=== PATIENT | male | born 1975 | race Caucasian/White ===

== ENCOUNTER 2024-01-05 15:15 | Inpatient (IN) | payer MEDICARE, OTHER ==
--- NOTE | 2024-01-05 15:59 | ED ---
General Adult HPI - General Chief complaint: Abdominal Pain Stated complaint: ABD Pain Time Seen by Provider: 01/05/24 15:17 Source: patient, EMS, RN notes reviewed, old records reviewed Mode of arrival: EMS Limitations: no limitations - History of Present Illness Initial comments: Is a 48-year-old male presents emergency department complaining of acute on chronic abdominal pain. Has a history of alcoholic liver disease, cirrhosis, esophageal varices, end-stage liver failure. States he has had increased abdominal pain and some mild jaundiced. Was sent from rehab. Last alcoholic drink was 1 week ago. States he is having a bout of his acute on chronic abdominal pain. States it is in the lower abdomen. Denies any diarrhea, constipation. Denies any nausea or vomiting. Denies any blood in the stool or any bloody emesis. Denies any chest pain or shortness of breath. Has no other acute complaints at this time. Presents for further evaluation at this time. Does have a history of banding in his esophagus and typically follows up with h is GI specialist at [facility], Dr. Garcia - Related Data Home Medications Medication Instructions Recorded Confirmed Calcium Phos/D3/Magnesium/Zinc 1 tab PO TID PRN 01/05/24 01/05/24 [Fjtqrmf-Het-Mucr-Vitamin D3] Chlorpheniramine Maleate 4 mg PO Q4H PRN 01/05/24 01/05/24 [Chlor-Trimeton] Folic Acid 1 mg PO DAILY 01/05/24 01/05/24 Furosemide [Lasix] 20 mg PO DAILY 01/05/24 01/05/24 Hyoscyamine Sulfate [Levsin] 0.125 mg PO QID PRN 01/05/24 01/05/24 INSULIN ASPART (NovoLOG) [NovoLOG See Protocol SQ TID-W/MEALS 01/05/24 01/05/24 (formulary)] Ibuprofen [Motrin Ib] 600 mg PO Q6H PRN 01/05/24 01/05/24 Insulin Glargine,Hum.rec.anlog 20 units SQ HS 01/05/24 01/05/24 [Lantus Solostar Pen] Lactulose 20 gm PO TID 01/05/24 01/05/24 Mag Hydrox/Aluminum Hyd/Simeth 30 ml PO Q4H PRN 01/05/24 01/05/24 [Mylanta Maximum Strength Liq] Pantoprazole [Protonix] 40 mg PO BID 01/05/24 01/05/24 Potassium Chloride ER [K-Dur 20] 20 meq PO DAILY PRN 01/05/24 01/05/24 QUEtiapine [SEROquel] 100 mg PO HS 01/05/24 01/05/24 Thiamine [Vitamin B-1] 100 mg PO DAILY 01/05/24 01/05/24 ondansetron HCL [Zofran] 8 mg PO Q6H PRN 01/05/24 01/05/24 rOPINIRole HCL [Requip] 1 mg PO HS 01/05/24 01/05/24 Allergies Allergy/AdvReac Type Severity Reaction Status Date / Time Penicillins Allergy Unknown Verified 01/05/24 16:25 Childhood Review of Systems ROS Statement: Those systems with pertinent positive or pertinent negative responses have been documented in the HPI. Review of Systems: CONST: Denies fever EYES: Denies blurry vision ENT: Denies nasal congestion C/V: Denies Chest pain RESP: Denies shortness of breath GI: Endorses abdominal pain : Denies dysuria SKIN: Denies rash. MSK: Denies joint pain. NEURO: Denies headache ROS Other: All systems not noted in ROS Statement are negative. Past Medical History Past Medical History: Chest Pain / Angina Additional Past Medical History / Comment(s): cirrhosis, esophageal varices, end stage liver failure History of Any Multi-Drug Resistant Organisms: None Reported Additional Past Surgical History / Comment(s): bands in esophagus Past Psychological History: No Psychological Hx Reported, Anxiety, Depression Smoking Status: Current every day smoker Past Alcohol Use History: Daily Past Drug Use History: Marijuana General Exam - General Exam Comments Initial Comments: General: Appears in no acute distress. HEAD: Normal with no signs of head trauma. EYES: EOMI. PERRLA. Scleral icterus. ENT: Hearing grossly intact, normal oropharynx. RESPIRATORY: Clear breath sounds bilaterally. No wheezes, rales, or rhonchi. C/V: Regular rate and rhythm. S1 and S2 auscultated, no edema, peripheral pulses 2+ and intact throughout ABD: Abdomen soft, mildly distended but patient states this is baseline. Lower abdominal tenderness to palpation that is nonfocal. No guarding. No rebound tenderness. No peritoneal signs. EXT: Normal range of motion, no obvious deformity SKIN: Patient appears jaundiced. NEURO: Alert and oriented x 4. Limitations: no limitations Course Vital Signs 01/05/24 01/05/24 01/05/24 15:33 19:12 20:46 Temperature 97.8 F Pulse Rate 83 78 91 Respiratory 18 18 16 Rate Blood Pressure 111/57 116/57 119/69 O2 Sat by Pulse 100 98 98 Oximetry Medical Decision Making - Medical Decision Making Was pt. sent in by a medical professional or institution (, PA, SURVEY PARTY CHIEF, urgent care, hospital, or halfway...) When possible be specific @ -No Did you speak to anyone other than the patient for history (EMS, parent, family, police, friend...)? What history was obtained from this source @ -No Did you review nursing and triage notes (agree or disagree)? Why? @ -I reviewed and agree with nursing and triage notes Were old charts reviewed (outside hosp., previous admission, EMS record, old EKG, old radiological studies, urgent care reports/EKG's, halfway records)? Report findings @ -No old charts available for reviewing. Differential Diagnosis (chest pain, altered mental status, abdominal pain women, abdominal pain men, vaginal bleeding, weakness, fever, dyspnea, syncope, headache, dizziness, GI bleed, back pain, seizure, CVA, palpatations, mental health, musculoskeletal)? @ -Differential Abdominal Pain Men: Appendicitis, cholecystitis, diverticulosis, ischemic bowel, pancreatitis, hepatitis, UTI, gastroenteritis, AAA, incarcerated hernia, bowel obstruction, constipation, inflammatory bowel, hepatitis, peptic ulcer disease, splenic infarction, perforated viscus, testicular torsion, this is not meant to be an all-inclusive list EKG interpreted by me (3pts min.). @ -As above X-rays interpreted by me (1pt min.). @ -None done CT interpreted by me (1pt min.). @ -CT imaging reveals no obvious acute intra-abdominal process. Patient has the hepatic cirrhosis with TIPS procedure and other nonspecific findings. Patient has a large amount of stool present in the colon. U/S interpreted by me (1pt. min.). @ -None done What testing was considered but not performed or refused? (CT, X-rays, U/S, labs)? Why? @ -None What meds were considered but not given or refused? Why? @ -None Did you discuss the management of the patient with other professionals (professionals i.e. DrFab, PA, SURVEY PARTY CHIEF, lab, RT, psych nurse, social welfare administrator, crepe machine operator, teacher, neighborhood conservation officer, behavioral health case manager)? Give summary @ -Initially attempted transfer to [facility] as patient follows up with his GI specialist there at his request. They are closed to transfer. Patient then would like to stay if possible, and I spoke with city call Dr. Delcid of [facility]. She was amenable to admission however only if we obtained prior laboratory studies to show that his current laboratory studies are relatively unchanged. Particularly of the bilirubin. If patient is being admitted for hyperammonemia which is my goal as well as acute on chronic abdominal pain, then they are willing to accept. We were able to obtain laboratory studies from November 2023 for the patient from [facility]. His current hemoglobin, bilirubin's are both improved compared to that time. I spoke with the on-call [facility] physician Dr. Saini who now accepted the admission. Was smoking cessation discussed for >3mins.? @ -No Was critical care preformed (if so, how long)? @ -Yes, 36 minutes Were there social determinants of health that impacted care today? How? (Homelessness, low income, unemployed, alcoholism, drug addiction, transportatio n, low edu. Level, literacy, decrease access to med. care, correction, rehab)? @ -No Was there de-escalation of care discussed even if they declined (Discuss DNR or withdrawal of care, Hospice)? DNR status @ -No What co-morbidities impacted this encounter? (DM, HTN, Smoking, COPD, CAD, Cancer, CVA, ARF, Chemo, Hep., AIDS, mental health diagnosis, sleep apnea, morbid obesity)? @ -Alcoholic liver disease, alcoholic liver cirrhosis Was patient admitted / discharged? Hospital course, mention meds given and route, prescriptions, significant lab abnormalities, going to OR and other pertinent info. @ -Based on the patient's presentation and physical exam, presents emergency department complaining of mildly increased jaundice as well as acute on chronic lower abdominal pain. Has a significant liver history from alcohol abuse. Last drink was 1 week ago. Usually follows up with a Dr. Garcia out of [facility]. Vital signs are currently within acceptable limits. We will obtain abdominal laboratory studies, CT imaging. Patient will be given a small fluid bolus as well as IV analgesia medications and Zofran. He was in agreement this plan. Has a history of banding of his esophagus however has no evidence of acute bleeding at this time, with patient denying hematemesis as well as sofie tochezia and melena. CT imaging shows hepatic cirrhosis with TIPS procedure but no obvious acute in tra-abdominal findings to explain his current symptoms. Labs remarkable for chronic anemia with a hemoglobin of 8.6. Thrombocytopenia with platelets of 45. Patient's elevated lactic acidosis of 2.8. Bilirubin is elevated to 4.0. Ammonia is elevated to 60. Lipase mildly elevated to 391. 4+ glucose in the urine. I discussed with the patient his results. I have no prior labs for comparison. We will work on obtaining prior labs. We did reach out to [facility] for possible transfer at his request as his GI attending is at this facility, however they are close to transfers. Patient therefore would like to remain here if possible. Initially attempted transfer to [facility] as patient follows up with his GI specialist there at his request. They are closed to transfer. Patient then would like to stay if possible, and I spoke with city call Dr. Delcid of [facility]. She was amenable to admission however only if we obtained prior laboratory studies to show that his current laboratory studies are relatively unchanged. Particularly of the bilirubin. If patient is being admitted for hyperammonemia which is my goal as well as acute on chronic abdominal pain, then they are willing to accept. We were able to obtain laboratory studies from November 2023 for the patient from [facility]. His current hemoglobin, bilirubin's are both improved compared to that time. I spoke with the on-call [facility] physician Dr. Saini who now accepted the admission. Patient started on a higher dose of lactulose. Undiagnosed new problem with uncertain prognosis? @ -No Drug Therapy requiring intensive monitoring for toxicity (Heparin, Nitro, Insulin, Cardizem)? @ -No Were any procedures done? @ -No Diagnosis/symptom? @ -Acute on chronic abdominal pain, history of hepatic cirrhosis, hyperammonemia Acute, or Chronic, or Acute on Chronic? @ -Acute on chronic Uncomplicated (without systemic symptoms) or Complicated (systemic symptoms)? @ -Complicated Side effects of treatment? @ -None Exacerbation, Progression, or Severe Exacerbation] @ -No Poses a threat to life or bodily function? @ -Yes - Lab Data Result diagrams: 01/05/24 15:49 01/05/24 15:49 Lab Results 01/05/24 01/05/24 01/05/24 Range/Units 15:49 15:49 15:49 WBC 2.7 L (3.8-10.6) k/uL RBC 2.75 L (4.30-5.90) m/uL Hgb 8.6 L (13.0-17.5) gm/dL Hct 26.9 L (39.0-53.0) % MCV 97.9 (80.0-100.0) fL MCH 31.3 (25.0-35.0) pg MCHC 32.0 (31.0-37.0) g/dL RDW 16.7 H (11.5-15.5) % Plt Count 45 L (150-450) k/uL MPV 8.0 Neutrophils % 56 % Lymphocytes % 31 % Monocytes % 7 % Eosinophils % 4 % Basophils % 1 % Neutrophils # 1.5 (1.3-7.7) k/uL Lymphocytes # 0.8 L (1.0-4.8) k/uL Monocytes # 0.2 (0-1.0) k/uL Eosinophils # 0.1 (0-0.7) k/uL Basophils # 0.0 (0-0.2) k/uL Manual Slide Review Performed Hypochromasia Moderate Hypochromasia (manual) Present Anisocytosis Slight Anisocytosis (manual) Present Macrocytosis Slight PT 17.7 H (10.0-12.5) sec INR 1.7 H (<1.2) APTT 33.3 H (22.0-30.0) sec Sodium (137-145) mmol/L Potassium (3.5-5.1) mmol/L Chloride (98-107) mmol/L Carbon Dioxide (22-30) mmol/L Anion Gap mmol/L BUN (9-20) mg/dL Creatinine (0.66-1.25) mg/dL Est GFR (CKD-EPI)AfAm (>60 ml/min/1.73 sqM) Est GFR (CKD-EPI)NonAf (>60 ml/min/1.73 sqM) Glucose (74-99) mg/dL POC Glucose (mg/dL) (70-110) mg/dL POC [employer] Lead ID Lactic Ac Sepsis Rflx Plasma Lactic Acid Daniel (0.7-2.0) mmol/L Calcium (8.4-10.2) mg/dL Total Bilirubin (0.2-1.3) mg/dL Conjugated Bilirubin (0.0-0.3) mg/dL Unconjugated Bilirubin (0.0-1.1) mg/dL Delta Bilirubin (0.0-0.2) mg/dL AST (17-59) U/L ALT (4-49) U/L Alkaline Phosphatase (38-126) U/L Ammonia (<30) umol/L Total Protein (6.3-8.2) g/dL Albumin (3.5-5.0) g/dL Amylase (30-110) U/L Lipase (23-300) U/L Urine Color Dark Yellow Urine Appearance Clear (Clear) Urine pH 5.5 (5.0-8.0) Ur Specific [place] 1.029 (1.001-1.035) Urine Protein Trace H (Negative) Urine Glucose (UA) 4+ H (Negative) Urine Ketones Trace H (Negative) Urine Blood Negative (Negative) Urine Nitrite Negative (Negative) Urine Bilirubin 1+ H (Negative) Urine Urobilinogen 2.0 (<2.0) mg/dL Ur Leukocyte Esterase Negative (Negative) Serum Alcohol mg/dL 01/05/24 01/05/24 01/05/24 Range/Units 15:49 15:49 16:19 WBC (3.8-10.6) k/uL RBC (4.30-5.90) m/uL Hgb (13.0-17.5) gm/dL Hct (39.0-53.0) % MCV (80.0-100.0) fL MCH (25.0-35.0) pg MCHC (31.0-37.0) g/dL RDW (11.5-15.5) % Plt Count (150-450) k/uL MPV Neutrophils % % Lymphocytes % % Monocytes % % Eosinophils % % Basophils % % Neutrophils # (1.3-7.7) k/uL Lymphocytes # (1.0-4.8) k/uL Monocytes # (0-1.0) k/uL Eosinophils # (0-0.7) k/uL Basophils # (0-0.2) k/uL Manual Slide Review Hypochromasia Hypochromasia (manual) Anisocytosis Anisocytosis (manual) Macrocytosis PT (10.0-12.5) sec INR (<1.2) APTT (22.0-30.0) sec Sodium 136 L (137-145) mmol/L Potassium 3.5 (3.5-5.1) mmol/L Chloride 106 (98-107) mmol/L Carbon Dioxide 25 (22-30) mmol/L Anion Gap 5 mmol/L BUN 11 (9-20) mg/dL Creatinine 0.69 (0.66-1.25) mg/dL Est GFR (CKD-EPI)AfAm >90 (>60 ml/min/1.73 sqM) Est GFR (CKD-EPI)NonAf >90 (>60 ml/min/1.73 sqM) Glucose 279 H (74-99) mg/dL POC Glucose (mg/dL) 321 H (70-110) mg/dL POC [employer] Lead ID Leida Bailey Lactic Ac Sepsis Rflx Plasma Lactic Acid Daniel 2.8 H* (0.7-2.0) mmol/L Calcium 8.0 L (8.4-10.2) mg/dL Total Bilirubin 4.0 H (0.2-1.3) mg/dL Conjugated Bilirubin 0.0 (0.0-0.3) mg/dL Unconjugated Bilirubin 1.8 H (0.0-1.1) mg/dL Delta Bilirubin 2.2 H (0.0-0.2) mg/dL AST 38 (17-59) U/L ALT 21 (4-49) U/L Alkaline Phosphatase 156 H (38-126) U/L Ammonia 60 H (<30) umol/L Total Protein 6.3 (6.3-8.2) g/dL Albumin 2.4 L (3.5-5.0) g/dL Amylase 56 (30-110) U/L Lipase 391 H (23-300) U/L Urine Color Urine Appearance (Clear) Urine pH (5.0-8.0) Ur Specific [place] (1.001-1.035) Urine Protein (Negative) Urine Glucose (UA) (Negative) Urine Ketones (Negative) Urine Blood (Negative) Urine Nitrite (Negative) Urine Bilirubin (Negative) Urine Urobilinogen (<2.0) mg/dL Ur Leukocyte Esterase (Negative) Serum Alcohol <10 mg/dL 01/05/24 Range/Units 17:28 WBC (3.8-10.6) k/uL RBC (4.30-5.90) m/uL Hgb (13.0-17.5) gm/dL Hct (39.0-53.0) % MCV (80.0-100.0) fL MCH (25.0-35.0) pg MCHC (31.0-37.0) g/dL RDW (11.5-15.5) % Plt Count (150-450) k/uL MPV Neutrophils % % Lymphocytes % % Monocytes % % Eosinophils % % Basophils % % Neutrophils # (1.3-7.7) k/uL Lymphocytes # (1.0-4.8) k/uL Monocytes # (0-1.0) k/uL Eosinophils # (0-0.7) k/uL Basophils # (0-0.2) k/uL Manual Slide Review Hypochromasia Hypochromasia (manual) Anisocytosis Anisocytosis (manual) Macrocytosis PT (10.0-12.5) sec INR (<1.2) APTT (22.0-30.0) sec Sodium (137-145) mmol/L Potassium (3.5-5.1) mmol/L Chloride (98-107) mmol/L Carbon Dioxide (22-30) mmol/L Anion Gap mmol/L BUN (9-20) mg/dL Creatinine (0.66-1.25) mg/dL Est GFR (CKD-EPI)AfAm (>60 ml/min/1.73 sqM) Est GFR (CKD-EPI)NonAf (>60 ml/min/1.73 sqM) Glucose (74-99) mg/dL POC Glucose (mg/dL) (70-110) mg/dL POC [employer] Lead ID Lactic Ac Sepsis Rflx Y Plasma Lactic Acid Daniel (0.7-2.0) mmol/L Calcium (8.4-10.2) mg/dL Total Bilirubin (0.2-1.3) mg/dL Conjugated Bilirubin (0.0-0.3) mg/dL Unconjugated Bilirubin (0.0-1.1) mg/dL Delta Bilirubin (0.0-0.2) mg/dL AST (17-59) U/L ALT (4-49) U/L Alkaline Phosphatase (38-126) U/L Ammonia (<30) umol/L Total Protein (6.3-8.2) g/dL Albumin (3.5-5.0) g/dL Amylase (30-110) U/L Lipase (23-300) U/L Urine Color Urine Appearance (Clear) Urine pH (5.0-8.0) Ur Specific [place] (1.001-1.035) Urine Protein (Negative) Urine Glucose (UA) (Negative) Urine Ketones (Negative) Urine Blood (Negative) Urine Nitrite (Negative) Urine Bilirubin (Negative) Urine Urobilinogen (<2.0) mg/dL Ur Leukocyte Esterase (Negative) Serum Alcohol mg/dL - EKG Data -: EKG Interpreted by Me EKG Comments: 12-lead Electrocardiogram Interpretation Note EKG was reviewed and interpreted by myself. 12-lead ECG performed at 1629 is interpreted by me as revealing normal sinus rhythm at a rate of 78 beats per minute. Reading is normal. ND interval is 132 ms, QRS duration is 105 ms, QTc is 478 ms.. T wave inversion in lead III that is isolated. No other obvious ST segment abnormalities or T wave abnormalities.. R wave progression across the precordium was satisfactory. By my interpretation this EKG is non-diagnostic for acute ischemia. Critical Care Time Critical Care Time: Yes Total Critical Care Time: 36 Disposition Clinical Impression: Abdominal pain, Hyperammonemia, Hepatic cirrhosis Disposition: ADMITTED IP TO THIS [facility] Condition: Stable Time of Disposition: 19:40
[2024-01-05] MEDS: MORPHINE SULFATE 4 MG/ML SYRINGE IVP STA ×2 (16:20→19:10)
[2024-01-05] MEDS: ONDANSETRON 4 MG/2 ML VIAL IVP STA (16:21)
[2024-01-05] MEDS: PANTOPRAZOLE 40 MG/10 ML VIAL IVP STA (16:23)
[2024-01-05] MEDS: SODIUM CHLORIDE 0.9% 500 ML 500 ML IV STA (16:23)
[2024-01-05 16:30] LABS: Glucose,Whole Blood 321 mg/dL (70-110)
[2024-01-05 16:54] LABS: Appearance,Urine Clear (Clear); Bilirubin,Urine 1+ (Negative); Blood,Urine Negative (Negative); Color,Urine Dark Yellow; Glucose,Urine (UA) 4+ (Negative); Ketones,Urine Trace (Negative); Leukocyte Esterase,Urine Negative (Negative); Nitrite,Urine Negative (Negative); PH, Urine 5.5 (5.0-8.0); Protein,Urine Trace (Negative); Specific Gravity,Urine 1.029 (1.001-1.035)
[2024-01-05 17:04] LABS: Anisocytosis Slight; Basophils % (A) 1 %; Eosinophils # (A) 0.1 k/uL (0-0.7); Eosinophils % (A) 4 %; HCT 26.9 % (39.0-53.0); HGB 8.6 gm/dL (13.0-17.5); Hypochromasia Moderate; Lymphocytes # (A) 0.8 k/uL (1.0-4.8); Lymphocytes % (A) 31 %; MCH 31.3 pg (25.0-35.0); MCV 97.9 fL (80.0-100.0); Macrocytosis Slight; Monocytes # (A) 0.2 k/uL (0-1.0); Monocytes % (A) 7 %; Neutrophils # (A) 1.5 k/uL (1.3-7.7); Neutrophils % (A) 56 %; RBC 2.75 m/uL (4.30-5.90); RDW 16.7 % (11.5-15.5); WBC 2.7 k/uL (3.8-10.6)
[2024-01-05 17:12] LABS: INR 1.7 (<1.2); Partial Thromboplastin Time 33.3 sec (22.0-30.0); Prothrombin Time 17.7 sec (10.0-12.5)
[2024-01-05 17:15] LABS: ALT 21 U/L (4-49); AST 38 U/L (17-59); African American GFR (CKD) >90 (>60 ml/min/1.73 sqM); Albumin 2.4 g/dL (3.5-5.0); Alcohol <10 mg/dL; Alkaline Phosphatase 156 U/L (38-126); Amylase 56 U/L (30-110); Anion Gap 5 mmol/L; Bilirubin, Delta 2.2 mg/dL (0.0-0.2); Bilirubin,Unconjugated 1.8 mg/dL (0.0-1.1); Blood Urea Nitrogen 11 mg/dL (9-20); Carbon Dioxide 25 mmol/L (22-30); Chloride 106 mmol/L (98-107); Glucose 279 mg/dL (74-99); Lipase 391 U/L (23-300); Non-African American GFR(CKD) >90 (>60 ml/min/1.73 sqM); Potassium 3.5 mmol/L (3.5-5.1); Sodium 136 mmol/L (137-145); Total Protein 6.3 g/dL (6.3-8.2)
[2024-01-05 17:20] LABS: Platelet Count 45 k/uL (150-450)
[2024-01-05 17:21] LABS: Anisocytosis (M) Present; Hypochromasia (M) Present
[2024-01-05 17:28] LABS: Lactic Acid, Venous 2.8 mmol/L (0.7-2.0)
--- NOTE | 2024-01-05 18:15 | CT ---
EXAMINATION TYPE: CT abdomen pelvis w con CT DLP: 939 mGycm, Automated exposure control for dose reduction was used. DATE OF EXAM: 01/05/2024 5:52 PM COMPARISON: None. CLINICAL INDICATION:Male, 48 years old with history of abdominal pain, nonlocalized; Cirrhosis of brant er, jaundice, and abdominal pain. TECHNIQUE: Axial CT abdomen pelvis w con;Sagittal and coronal reformats were created on a separate w orkstation. Contrast used:100 ml mL of Isovue 300 with IV Contrast, (none if empty) Oral contrast used: without Oral Contrast (none if empty) FINDINGS: LOWER CHEST: Unremarkable ABDOMEN LIVER: Nodular contour to liver. There is a transjugular intrahepatic portosystemic shunt stent graft s present with one end terminating appropriately in the portal vein and the other near the IVC. GALLB LADDER AND BILE DUCTS: Gallbladder wall thickening nondistention likely secondary to cirrhosis. PANCREAS: Unremarkable. SPLEEN: Spleen is enlarged measuring up to 16.6 cm. ADRENAL GLANDS: Unremarkable. KIDNEYS AND URETERS: No evidence of hydronephrosis or renal calculus. The ureters are unremarkable. PELVIS BLADDER: Unremarkable REPRODUCTIVE: Unremarkable. ABDOMEN & PELVIS STOMACH AND BOWEL: No evidence of bowel obstruction. The appendix is normal. Large amount of stool se en throughout the colon. PERITONEUM/RETROPERITONEUM: No evidence of pneumoperitoneum. Trace free fluid throughout the abdomen. . Vika mesentery is present possibly related to edema. Surgical clips are seen in the upper abdomen. VASCULATURE: No evidence of aortic aneurysm. Upper abdominal varices are present MUSCULOSKELETAL: No acute osseous abnormalities LYMPH NODES: No gross evidence for lymphadenopathy. SOFT TISSUE/ABDOMINAL WALL: Fat-containing inguinal hernias bilaterally. IMPRESSION: 1. Hepatic cirrhosis with evidence of TIPS procedure. There remains splenomegaly unclear if this is sequela of portal hypertension before patient's TIPS procedure or current portal hypertension. There is trace abdominal ascites and anasarca. Consider evaluation of the TIPS is concern for TIPS malfunct ion. 2. Vika mesentery likely secondary to evidence of hepatic cirrhosis. 3. Large amount of stool throughout the colon. 4. Gallbladder wall thickening likely secondary to #1 and portal hypertension.
[2024-01-05] MEDS: LACTULOSE 20 GM/30 ML CUP PO ONE (18:18)
[2024-01-05] MEDS ORDERED: NALOXONE 0.4 MG/ML 1 ML VIAL IV PRN (19:50)
[2024-01-05] MEDS: HYDROmorphone 0.5 MG/0.5 ML SYRINGE IVP STA (20:44)
[2024-01-05] MEDS ORDERED: HYOSCYAMINE SULFATE 0.125 MG TAB PO PRN (21:38)
[2024-01-05] MEDS ORDERED: diphenhydrAMINE 25 MG CAP PO PRN (21:38)
[2024-01-05] MEDS ORDERED: DEXTROSE 50% SYRINGE 50 ML IVP PRN ×2 (21:39)
[2024-01-05 22:53] LABS: Glucose,Whole Blood 284 mg/dL (70-110)
[2024-01-05] MEDS: QUEtiapine 100 MG TAB PO SCH (23:08)
[2024-01-05] MEDS: LACTULOSE 20 GM/30 ML CUP PO SCH (23:08)
[2024-01-06] MEDS: HYDROmorphone 0.5 MG/0.5 ML SYRINGE IVP PRN (00:10)
--- NOTE | 2024-01-06 05:20 | P.HPIM ---
History of Present Illness H&P Date: 01/05/24 Chief Complaint: Abdominal pain 48-year-old male with liver cirrhosis end-stage status post TI PS, esophageal varices, history of hepatitis C status posttreatment Patient coming in from [facility] for alcohol rehab, he has been there for about a week now presenting with a chief complaint of increased confusion and abdominal pain. Patient himself denies any fevers chills nausea vomiting or diarrhea he denies any GI bleeding or melena denies any chest pain or trouble b reathing He describes his belly pain and suprapubic and diffused he feels weak and tired unable to move due to increased pain. Otherwise patient does not provide any detailed information he is very vague with his history. Patient admits to heavy alcohol and marijuana smoking review of systems Pertinent positives as noted in HPI. All other systems were reviewed and are negative on exam Constitutional: No acute distress Eyes: Jaundiced sclerae, moist conjunctiva, Pupils equal round reactive to light ENMT: NC/AT Oropharynx clear, no erythema, or exudates Neck: Supple, no masses, or JVD No carotid bruits No thyromegaly Lungs: Clear to auscultation Clear to percussion Normal respiratory effort, no accessory muscle use Cardiovascular: Heart regular in rate and rhythm, No murmurs, gallops, or rubs No peripheral edema Abdominal: Soft Diffuse tenderness to palpation, no guarding, rebound or rigidity Abdomen moving with respiration Normoactive bowel sounds No hepatomegaly, No splenomegaly No palpable mass No abdominal wall hernia noted Extremities: No digital cyanosis No clubbing Pedal pulses intact and symmetrical Radial pulses intact and symmetrical No calf tenderness Psychiatric: Alert and oriented to person, place and time Neuro Muscles Strength 4/5 in all 4 extremities Sensation to light touch grossly present throughout Cranial nerves II-XII grossly intact Past Medical History Past Medical History: Chest Pain / Angina Additional Past Medical History / Comment(s): cirrhosis, esophageal varices, end stage liver failure History of Any Multi-Drug Resistant Organisms: None Reported Additional Past Surgical History / Comment(s): bands in esophagus Past Psychological History: No Psychological Hx Reported, Anxiety, Depression Smoking Status: Current every day smoker Past Alcohol Use History: Daily Past Drug Use History: Marijuana Medications and Allergies Home Medications Medication Instructions Recorded Confirmed Type Calcium Phos/D3/Magnesium/Zinc 1 tab PO TID PRN 01/05/24 01/05/24 History [Hnvxoxm-Yzy-Wgua-Vitamin D3] Chlorpheniramine Maleate 4 mg PO Q4H PRN 01/05/24 01/05/24 History [Chlor-Trimeton] Folic Acid 1 mg PO DAILY 01/05/24 01/05/24 History Furosemide [Lasix] 20 mg PO DAILY 01/05/24 01/05/24 History Hyoscyamine Sulfate [Levsin] 0.125 mg PO QID PRN 01/05/24 01/05/24 History INSULIN ASPART (NovoLOG) [NovoLOG See Protocol SQ TID-W/MEALS 01/05/24 01/05/24 History (formulary)] Ibuprofen [Motrin Ib] 600 mg PO Q6H PRN 01/05/24 01/05/24 History Insulin Glargine,Hum.rec.anlog 20 units SQ HS 01/05/24 01/05/24 History [Lantus Solostar Pen] Lactulose 20 gm PO TID 01/05/24 01/05/24 History Mag Hydrox/Aluminum Hyd/Simeth 30 ml PO Q4H PRN 01/05/24 01/05/24 History [Mylanta Maximum Strength Liq] Pantoprazole [Protonix] 40 mg PO BID 01/05/24 01/05/24 History Potassium Chloride ER [K-Dur 20] 20 meq PO DAILY PRN 01/05/24 01/05/24 History QUEtiapine [SEROquel] 100 mg PO HS 01/05/24 01/05/24 History Thiamine [Vitamin B-1] 100 mg PO DAILY 01/05/24 01/05/24 History ondansetron HCL [Zofran] 8 mg PO Q6H PRN 01/05/24 01/05/24 History rOPINIRole HCL [Requip] 1 mg PO HS 01/05/24 01/05/24 History Allergies Allergy/AdvReac Type Severity Reaction Status Date / Time Penicillins Allergy Unknown Verified 01/05/24 16:25 Childhood Physical Exam Vitals: Vital Signs Temp Pulse Resp BP Pulse Ox 01/05/24 19:12 78 18 116/57 98 01/05/24 15:33 97.8 F 83 18 111/57 100 Intake and Output 01/05/24 01/05/24 01/05/24 06:59 14:59 22:59 Other: Weight 78.925 kg Results CBC & Chem 7: 01/05/24 15:49 01/05/24 15:49 Labs: Abnormal Lab Results - Last 24 Hours (Table) 01/05/24 01/05/24 01/05/24 Range/Units 15:49 15:49 15:49 WBC 2.7 L (3.8-10.6) k/uL RBC 2.75 L (4.30-5.90) m/uL Hgb 8.6 L (13.0-17.5) gm/dL Hct 26.9 L (39.0-53.0) % RDW 16.7 H (11.5-15.5) % Plt Count 45 L (150-450) k/uL Lymphocytes # 0.8 L (1.0-4.8) k/uL PT 17.7 H (10.0-12.5) sec INR 1.7 H (<1.2) APTT 33.3 H (22.0-30.0) sec Sodium (137-145) mmol/L Glucose (74-99) mg/dL POC Glucose (mg/dL) (70-110) mg/dL Plasma Lactic Acid Daniel (0.7-2.0) mmol/L Calcium (8.4-10.2) mg/dL Total Bilirubin (0.2-1.3) mg/dL Unconjugated Bilirubin (0.0-1.1) mg/dL Delta Bilirubin (0.0-0.2) mg/dL Alkaline Phosphatase (38-126) U/L Ammonia (<30) umol/L Albumin (3.5-5.0) g/dL Lipase (23-300) U/L Urine Protein Trace H (Negative) Urine Glucose (UA) 4+ H (Negative) Urine Ketones Trace H (Negative) Urine Bilirubin 1+ H (Negative) 01/05/24 01/05/24 01/05/24 Range/Units 15:49 15:49 16:19 WBC (3.8-10.6) k/uL RBC (4.30-5.90) m/uL Hgb (13.0-17.5) gm/dL Hct (39.0-53.0) % RDW (11.5-15.5) % Plt Count (150-450) k/uL Lymphocytes # (1.0-4.8) k/uL PT (10.0-12.5) sec INR (<1.2) APTT (22.0-30.0) sec Sodium 136 L (137-145) mmol/L Glucose 279 H (74-99) mg/dL POC Glucose (mg/dL) 321 H (70-110) mg/dL Plasma Lactic Acid Daniel 2.8 H* (0.7-2.0) mmol/L Calcium 8.0 L (8.4-10.2) mg/dL Total Bilirubin 4.0 H (0.2-1.3) mg/dL Unconjugated Bilirubin 1.8 H (0.0-1.1) mg/dL Delta Bilirubin 2.2 H (0.0-0.2) mg/dL Alkaline Phosphatase 156 H (38-126) U/L Ammonia 60 H (<30) umol/L Albumin 2.4 L (3.5-5.0) g/dL Lipase 391 H (23-300) U/L Urine Protein (Negative) Urine Glucose (UA) (Negative) Urine Ketones (Negative) Urine Bilirubin (Negative) Assessment and Plan Assessment: 48-year-old male with end-stage liver disease and cirrhosis status post TI PS, esophageal varices coming in for increased confusion and lower abdominal pain he has been at [facility] for rehab due to alcohol abuse I discussed case with ED doctor and accepted the admission for acute metabolic encephalopathy secondary to hyperammonemia with anticipated length stay more than 2 midnights Acute metabolic encephalopathy End-stage liver disease with cirrhosis status post TI PS Hyperammonemia Lactulose 30 mg 3 times daily target 2-5 bowel movements per day Ammonia level 60 INR 1.7 Bilirubin 4, elevated AST 38 ALT 21, unremarkable Lipase 391 slightly elevated, patient reports chronic pancreatitis Continue with home meds Protonix Symptomatic control of abdominal pain with opiates morphine 4 mg IV push as needed Patient does not seem to be on beta-em at home CT scan of the abdomen showed trace ascites. Large amount of stool throughout the colon with chronic changes related to liver cirrhosis Concerns regarding TIPS malfunction if symptoms persist patient will require GI evaluation Pancytopenia secondary to history of hepatitis C, end-stage liver disease, chronic alcoholism Chronic anemia Hemoglobin 8.6 currently denies any bleeding White count 2.7, afebrile Platelets 45, denies any bleeding Renal function unremarkable sodium 136 potassium 3.5 BUN 11 creatinine 0.6 Diabetes mellitus, insulin sliding scale Hold Levemir due to decreased p.o. intake Full code DVT prophylaxis mechanical secondary to thrombocytopenia Fall precautions
[2024-01-06 06:28] LABS: Glucose,Whole Blood 248 mg/dL (70-110)
[2024-01-06] MEDS: INSULIN ASPART (NovoLOG) 100 UNIT/ML VIAL SQ SCH (06:39)
[2024-01-06] MEDS: PANTOPRAZOLE 40 MG TABLET PO SCH (06:39)
[2024-01-06] MEDS: ONDANSETRON 4 MG/2 ML VIAL IVP PRN (08:12)
[2024-01-06] MEDS: FUROSEMIDE 20 MG TAB PO SCH (08:12)
[2024-01-06] MEDS: FOLIC ACID 1 MG TAB PO SCH (08:12)
[2024-01-06 09:16] LABS: Basophils # (A) 0.04 X 10*3/uL (0.00-0.10); Basophils % (A) 0.6 %; Eosinophils # (A) 0.17 X 10*3/uL (0.04-0.35); Eosinophils % (A) 2.6 %; HCT 27.2 % (39.6-50.0); HGB 8.8 g/dL (13.0-17.0); Immature Platelet Fraction 1.8 % (1.1-6.1); Lymphocytes # (A) 0.75 X 10*3/uL (0.90-5.00); Lymphocytes % (A) 11.6 %; MCH 31.3 pg (27.0-32.0); MCHC 32.4 g/dL (32.0-37.0); MCV 96.8 FL (80.0-97.0); Monocytes # (A) 0.44 X 10*3/uL (0.20-1.00); Monocytes % (A) 6.8 %; NRBC Per 100 WBC 0 X 10*3/uL (0.00-0.01); Neutrophils # (A) 5.02 X 10*3/uL (1.80-7.70); Neutrophils % (A) 78.1 %; Platelet Count 43 X 10*3/uL (140-440); RBC 2.81 X 10*6/uL (4.40-5.60); RBC Morphology Normal (Normal); RDW 16.8 % (11.5-14.5); WBC 6.44 X 10*3/uL (4.50-10.00)
[2024-01-06] MEDS: THIAMINE 100 MG TAB PO SCH (10:24)
[2024-01-06 11:28] LABS: Glucose,Whole Blood 263 mg/dL (70-110)
[2024-01-06 12:02] LABS: ALT 21 U/L (10-49); AST 36 U/L (14-35); Albumin 2.6 g/dL (3.8-4.9); Albumin/Globulin Ratio 0.74 Ratio (1.60-3.17); Alkaline Phosphatase 126 U/L (41-126); BUN/Creat Ratio 15.14 Ratio (12.00-20.00); Blood Urea Nitrogen 10.6 mg/dL (9.0-27.0); Calcium 8.4 mg/dL (8.7-10.3); Carbon Dioxide 23.9 mmol/L (21.6-31.8); Chloride 101 mmol/L (96-109); Globulin 3.5 g/dL (1.6-3.3); Glucose 239 mg/dL (70-110); Potassium 3.2 mmol/L (3.5-5.5); Sodium 134 mmol/L (135-145); Total Bilirubin 4.8 mg/dL (0.3-1.2); Total Protein 6.1 g/dL (6.2-8.2)
--- NOTE | 2024-01-06 15:41 | P.PN ---
Subjective Progress Note Date: 01/06/24 Hospital course: Patient is a pleasant 48-year-old male with a past medical history of alcohol abuse, polysubstance abuse, end-stage liver cirrhosis status post TIPS procedure, and esophageal varices. Patient presented to the emergency department on 01/05/2024 from [facility] where he was attending rehab over the past 3 days for alcohol withdrawal. Patient reports that it has been approximately 1 week since his last alcoholic beverage. Patient came to the emergency department secondary to reports of confusion and abdominal pain. Patient reports that it has been approximately 1 year since his last paracentesis. He underwent full evaluation in the emergency department. Upon arrival vital signs completed and reviewed. Blood pressure 111/57, heart rate 83, respiratory rate 18, temp 97.8 F, and SpO2 of 100% on room air. EKG completed showing normal sinus rhythm at 78 bpm. Labs completed and reviewed. CBC showing pancytopenia with WBC count of 2.7, hemoglobin 8.6, and platelet count of 45. INR elevated at 1.7. BMP showing hyperglycemia with glucose of 279. Lactic acid elevated at 2.8. Liver profile showing elevated total bili of 4.0 and alkaline phosphatase of 156. Ammonia levels were elevated at 60. Lipase also slightly elevated at 391. Urinalysis positive for protein, glucose, ketones, and bilirubin otherwise negative for infection. Serum alcohol levels were negative at less than 10. CT abdomen and pelvis was completed showing hepatic cirrhosis with evidence of TIPS procedure, continued splenomegaly, trace abdominal ascites and anasarca, tamar mesentery, and gallbladder wall thickening likely secondary to hepatic cirrhosis and portal hypertension. MELD score 19 at time of admission. Patient admitted under our services at this time. Gastroenterology services are not available until 01/10/2024, if patient remains hospitalized will consider consultation to GI services at this time if status changes and patient needs urgent GI consult will arrange for transfer to another facility where patient may be evaluated by retail business manager/crepe sole wire brusher. Physical exam: Vital signs reviewed and stable. General: Nontoxic, no distress and appears stated age. Derm: Skin warm and dry, jaundiced Head: Atraumatic, normocephalic and symmetric. Eyes: EOMs intact, no lid lag, and scleral icterus present Mouth: no lip lesions, mucus membranes moist Cardiovascular: regular rate and rhythm with normal S1S2, no murmur, positive posterior tibial pulses bilaterally, and cap refill < 2 seconds. Lungs: Respirations even, regular, and unlabored on room air. Lungs CTA bilaterally, no rhonchi, no rales, no wheezing, and no accessory muscle usage. Abdominal: Cirrhotic abdomen, distended, mild diffuse tenderness upon palpation no guarding Ext: ROM intact. No gross muscle atrophy, 1+ pitting bilateral lower extremity edema edema, no contractures Neuro: Speech clear, face symmetrical and CN II-XII grossly intact with no noted focal neuro deficits Psych: Alert and oriented to person, place, time, and situation. Appropriate and pleasant affect. Assessment and Plan of Care: Acute metabolic encephalopathy secondary to hyperammonemia End-stage hepatic cirrhosis status post TIPS procedure Hyperbilirubinemia secondary to above Pancytopenia, secondary to above Elevated liver enzymes secondary to above Esophageal varices secondary to end-stage liver cirrhosis Alcohol abuse longstanding history of daily alcohol use Hypokalemia likely secondary multifactorial to daily alcohol use/abuse along with daily diuretic use Lactic acidosis, secondary to cirrhosis. Repeat lactate showing resolution. -Lactulose increased to 30 mg 3 times daily, if no improvement in mentation or ammonia levels we will add rifaximin tomorrow morning to assist in decreasing ammonia levels -Patient to remain on continuous telemetry monitoring with neurochecks every 4 hours and fall precautions in place. -Continue Lasix 20 mg daily -Symptomatic care and pain management. -Provide safe and supportive care and reorientation/redirection as needed -Continue close monitoring with repeat morning CBC, CMP, and ammonia levels. -MELD score 19 at time of admission. -Order placed for abdominal ultrasound to evaluate for abdominal ascites and for evaluation of TIPS function. -Gastroenterology services are not available until 01/10/2024, if patient remains hospitalized will consider consultation to GI services at this time if status changes and patient needs urgent GI consult will arrange for transfer to another facility. Insulin-dependent diabetes mellitus with hyperglycemia Hemoglobin A1c 6.3%. Patient to continue with glycemic protocol and NovoLog sliding scale. Data reviewed: Repeat morning labs reviewed. CBC showing bicytopenia with hemoglobin of 8.8 and platelet count of 43. BMP showing hyponatremia with sodium of 134, potassium 3.2, and glucose of 239. Hemoglobin A1c 6.3%. Liver profile showing total bili of 4.8, AST of 36, ALT of 21, alkaline phosphatase of 126. Ammonia increasing to 90. Vital signs reviewed. Blood pressure 129/69, heart rate elevated up to 120, respiratory rate 17, temp 97.7 F, and SpO2 of 97% on room air. CODE STATUS: Full code DVT prophylaxis: SOLIS mills and SCDs secondary to pancytopenia with current platelet count of 43 Anticipated discharge date: Clinical course to determine Anticipated discharge place: Clinical course to determine Patient was seen independently by Nurse Pracitioner. This document was prepared using [employer] dictation software. Please allow for errors in mule operator, while rare they do occur. I reviewed the documentation as provided by the YASHIRA above, who is the original author of this note. I agree with the documented assessment and plan, with the following changes: none Objective - Vital Signs Vital signs: Vital Signs Temp 97.7 F 01/06/24 07:16 Pulse 120 H 01/06/24 08:26 Resp 16 01/06/24 08:26 BP 129/69 01/06/24 07:16 Pulse Ox 97 01/06/24 07:16 FiO2 Intake & Output 01/05/24 01/06/24 01/06/24 18:59 06:59 18:59 Weight 78.925 kg 78.925 kg Other: # Voids 2 - Labs CBC & Chem 7: 01/07/24 05:42 01/07/24 05:42 Labs: Abnormal Lab Results - Last 24 Hours (Table) 01/05/24 01/05/24 01/05/24 Range/Units 15:49 15:49 15:49 WBC 2.7 L (3.8-10.6) k/uL RBC 2.75 L (4.30-5.90) m/uL Hgb 8.6 L (13.0-17.5) gm/dL Hct 26.9 L (39.0-53.0) % RDW 16.7 H (11.5-15.5) % Plt Count 45 L (150-450) k/uL Lymphocytes # 0.8 L (1.0-4.8) k/uL PT 17.7 H (10.0-12.5) sec INR 1.7 H (<1.2) APTT 33.3 H (22.0-30.0) sec Sodium (137-145) mmol/L Glucose (74-99) mg/dL POC Glucose (mg/dL) (70-110) mg/dL Plasma Lactic Acid Daniel (0.7-2.0) mmol/L Calcium (8.4-10.2) mg/dL Total Bilirubin (0.2-1.3) mg/dL Unconjugated Bilirubin (0.0-1.1) mg/dL Delta Bilirubin (0.0-0.2) mg/dL Alkaline Phosphatase (38-126) U/L Ammonia (<30) umol/L Albumin (3.5-5.0) g/dL Lipase (23-300) U/L Urine Protein Trace H (Negative) Urine Glucose (UA) 4+ H (Negative) Urine Ketones Trace H (Negative) Urine Bilirubin 1+ H (Negative) 01/05/24 01/05/24 01/05/24 Range/Units 15:49 15:49 16:19 WBC (3.8-10.6) k/uL RBC (4.30-5.90) m/uL Hgb (13.0-17.5) gm/dL Hct (39.0-53.0) % RDW (11.5-15.5) % Plt Count (150-450) k/uL Lymphocytes # (1.0-4.8) k/uL PT (10.0-12.5) sec INR (<1.2) APTT (22.0-30.0) sec Sodium 136 L (137-145) mmol/L Glucose 279 H (74-99) mg/dL POC Glucose (mg/dL) 321 H (70-110) mg/dL Plasma Lactic Acid Daniel 2.8 H* (0.7-2.0) mmol/L Calcium 8.0 L (8.4-10.2) mg/dL Total Bilirubin 4.0 H (0.2-1.3) mg/dL Unconjugated Bilirubin 1.8 H (0.0-1.1) mg/dL Delta Bilirubin 2.2 H (0.0-0.2) mg/dL Alkaline Phosphatase 156 H (38-126) U/L Ammonia 60 H (<30) umol/L Albumin 2.4 L (3.5-5.0) g/dL Lipase 391 H (23-300) U/L Urine Protein (Negative) Urine Glucose (UA) (Negative) Urine Ketones (Negative) Urine Bilirubin (Negative) 01/05/24 01/06/24 01/06/24 Range/Units 22:52 06:27 06:33 WBC (3.8-10.6) k/uL RBC (4.30-5.90) m/uL Hgb (13.0-17.5) gm/dL Hct (39.0-53.0) % RDW (11.5-15.5) % Plt Count (150-450) k/uL Lymphocytes # (1.0-4.8) k/uL PT (10.0-12.5) sec INR (<1.2) APTT (22.0-30.0) sec Sodium (137-145) mmol/L Glucose (74-99) mg/dL POC Glucose (mg/dL) 284 H 248 H (70-110) mg/dL Plasma Lactic Acid Daniel (0.7-2.0) mmol/L Calcium (8.4-10.2) mg/dL Total Bilirubin (0.2-1.3) mg/dL Unconjugated Bilirubin (0.0-1.1) mg/dL Delta Bilirubin (0.0-0.2) mg/dL Alkaline Phosphatase (38-126) U/L Ammonia 90 H (<30) umol/L Albumin (3.5-5.0) g/dL Lipase (23-300) U/L Urine Protein (Negative) Urine Glucose (UA) (Negative) Urine Ketones (Negative) Urine Bilirubin (Negative)
[2024-01-06] MEDS: POTASSIUM CHLORIDE ER 20 MEQ TAB.ER PO STA (15:56)
[2024-01-06 16:33] LABS: Glucose,Whole Blood 265 mg/dL (70-110)
[2024-01-06 20:33] LABS: Glucose,Whole Blood 220 mg/dL (70-110)
[2024-01-06] MEDS ORDERED: INSULIN DETEMIR (LEVEMIR) 100 UNIT/ML SYR SQ SCH (21:00)
[2024-01-07 05:40] LABS: Glucose,Whole Blood 215 mg/dL (70-110)
--- NOTE | 2024-01-07 08:55 | US ---
EXAMINATION TYPE: US abdomen limited DATE OF EXAM: 01/07/2024 COMPARISON: NONE CLINICAL INDICATION: Male, 48 years old with history of evaluate abd ascites and TIPS with doppler; A lcoholic cirrhosis, TIPS placed 4 months ago, h/o ascites, will assess today TECHNIQUE: Multiple sonographic images of the right upper quadrant are obtained. FINDINGS: EXAM MEASUREMENTS: Liver Length: 17.0 cm Gallbladder Wall: 0.4 cm CBD: 0.7 cm Right Kidney: 10.7 x 4.4 x 5.1 cm SOLAR SALES MANAGER NOTES: bowel gas limits subcostal and epigastric view Pancreas: not seen due to bowel gas Liver: intercostal right lobe only due to bowel gas, heterogeneous MPV shunt was seen with flow n oted within Gallbladder: wnl Evidence for sonographic Jones's sign: no CBD: wall thickened Right Kidney: wnl All four quadrants scanned with no ascites seen on today's exam, trace amount seen on CT yesterday IMPRESSION: 1.MPV shunt was seen with flow noted within 2. Hepatic steatosis. 3. Gallbladder wall thickening.
[2024-01-07 08:56] LABS: HCT 24.2 % (39.6-50.0); HGB 7.8 g/dL (13.0-17.0); Immature Platelet Fraction 2.2 % (1.1-6.1); MCH 30.8 pg (27.0-32.0); MCHC 32.2 g/dL (32.0-37.0); MCV 95.7 FL (80.0-97.0); Mean Platelet Volume 9.9 FL (9.5-12.2); NRBC Per 100 WBC 0 X 10*3/uL (0.00-0.01); Platelet Count 39 X 10*3/uL (140-440); RBC 2.53 X 10*6/uL (4.40-5.60); RDW 16.5 % (11.5-14.5); WBC 5.07 X 10*3/uL (4.50-10.00)
[2024-01-07 08:58] LABS: Magnesium 1.4 mg/dL (1.5-2.4)
[2024-01-07 09:00] LABS: ALT 15 U/L (10-49); AST 31 U/L (14-35); Albumin 2.3 g/dL (3.8-4.9); Albumin/Globulin Ratio 0.74 Ratio (1.60-3.17); Alkaline Phosphatase 100 U/L (41-126); BUN/Creat Ratio 15.71 Ratio (12.00-20.00); Calcium 7.9 mg/dL (8.7-10.3); Carbon Dioxide 23.8 mmol/L (21.6-31.8); Chloride 105 mmol/L (96-109); Globulin 3.1 g/dL (1.6-3.3); Glucose 193 mg/dL (70-110); Potassium 3.7 mmol/L (3.5-5.5); Sodium 136 mmol/L (135-145); Total Bilirubin 4.2 mg/dL (0.3-1.2); Total Protein 5.4 g/dL (6.2-8.2)
--- NOTE | 2024-01-07 10:45 | P.PN ---
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 Patient presented to the emergency department on 01/05/2024 from [place] where he was attending rehab over the past 3 days for alcohol withdrawal. Patient reports that it has been approximately 1 week since his last alcoholic beverage. Patient came to the emergency department secondary to reports of confusion and abdominal pain. Patient reports that it has been approximately 1 year since his last paracentesis. He underwent full evaluation in the emergency department. Upon arrival vital signs completed and reviewed. Blood pressure 111/57, heart rate 83, respiratory rate 18, temp 97.8 F, and SpO2 of 100% on room air. EKG completed showing normal sinus rhythm at 78 bpm. Labs completed and reviewed. CBC showing pancytopenia with WBC count of 2.7, hemoglobin 8.6, and platelet count of 45. INR elevated at 1.7. BMP showing hyperglycemia with glucose of 279. Lactic acid elevated at 2.8. Liver profile showing elevated total bili of 4.0 and alkaline phosphatase of 156. Ammonia levels were elevated at 60. Lipase also slightly elevated at 391. Urinalysis positive for protein, glucose, ketones, and bilirubin otherwise negative for infection. Serum alcohol levels were negative at less than 10. CT abdomen and pelvis was completed showing hepatic cirrhosis with evidence of TIPS procedure, continued splenomegaly, trace abdominal ascites and anasarca, tamar mesentery, and gallbladder wall thickening likely secondary to hepatic cirrhosis and portal hypertension. MELD score 19 at time of admission. Patient admitted under our services at this time. 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 Abdominal ultrasound completed showing MPV with flow noted within confirming working TIPS, reporting no ascites seen on ultrasound exam showing hepatic steatosis and gallbladder wall thickening. Patient continues to report significant diffuse abdominal pain, he has had multiple bowel movements, ultrasound did reveal some gallbladder wall thickening. General surgery consulted for evaluation and further recommendations. Physical exam: Patient alert and oriented at this time. He continues to report diffuse abdominal tenderness this morning more so to epigastric region and upper quadrants. It is unclear as to why he is having this diffuse reported significant to severe abdominal pain as it could be multifactorial resulting from his cirrhosis, however CT and ultrasound showing gallbladder wall thickening. Consult placed to general surgery for further evaluation. Vital signs reviewed and stable. General: Nontoxic, no distress and appears stated age. Derm: Skin warm and dry, jaundiced Head: Atraumatic, normocephalic and symmetric. Eyes: EOMs intact, no lid lag, and scleral icterus present Mouth: no lip lesions, mucus membranes moist Cardiovascular: regular rate and rhythm with normal S1S2, no murmur, positive posterior tibial pulses bilaterally, and cap refill < 2 seconds. Lungs: Respirations even, regular, and unlabored on room air. Lungs CTA bilaterally, no rhonchi, no rales, no wheezing, and no accessory muscle usage. Abdominal: distended abdomen, mild diffuse tenderness upon palpation to upper abdomen. no guarding Ext: ROM intact. No gross muscle atrophy, 1+ pitting bilateral lower extremity edema edema, no contractures Neuro: Speech clear, face symmetrical and CN II-XII grossly intact with no noted focal neuro deficits Psych: Alert and oriented to person, place, time, and situation. Appropriate and pleasant affect. Assessment and Plan of Care: Acute hepatic encephalopathy secondary to end-stage liver cirrhosis and hyperammonemia End-stage hepatic cirrhosis status post TIPS procedure Hyperbilirubinemia secondary to above Pancytopenia, secondary to above Elevated liver enzymes secondary to above Esophageal varices secondary to end-stage liver cirrhosis Alcohol abuse longstanding history of daily alcohol use Hypokalemia likely secondary multifactorial to daily alcohol use/abuse along with daily diuretic use Lactic acidosis, secondary to cirrhosis. Repeat lactate showing resolution. -Lactulose increased to 30 mg 3 times daily, if no improvement in mentation or ammonia levels we will add rifaximin tomorrow morning to assist in decreasing ammonia levels -Patient to remain on continuous telemetry monitoring with neurochecks every 4 hours and fall precautions in place. -Continue Lasix 20 mg daily -Symptomatic care and pain management. -Provide safe and supportive care and reorientation/redirection as needed -Continue close monitoring with repeat morning CBC, CMP, and ammonia levels. -MELD score 19 at time of admission. -Order placed for abdominal ultrasound to evaluate for abdominal ascites and for evaluation of TIPS function. -Gastroenterology services are not available until 01/10/2024, if patient remains hospitalized will consider consultation to GI services at this time if status changes and patient needs urgent GI consult will arrange for transfer to another facility. Abdominal pain with hyperbilirubinemia -It is unclear as to why pt is having diffuse abdominal pain as it could be multifactorial resulting from his cirrhosis, however CT and ultrasound showing gallbladder wall thickening. -Consult placed to general surgery to evaluate as gallbladder wall thickening could likely be secondary to his cirrhosis and portal hypertension, however with patient's reports of persistent diffuse abdominal pain, need further evaluat ion.. Hypomagnesemia Magnesium 1.4, orders placed for magnesium sulfate 3 g IVPB for replacement. Insulin-dependent diabetes mellitus with hyperglycemia Hemoglobin A1c 6.3%. Patient to continue with glycemic protocol and NovoLog sliding scale. Data reviewed: Repeat morning labs reviewed. CBC showing bicytopenia with hemoglobin of 7.8 and platelet count of 39. BMP unremarkable with exception of elevated glucose of 193.. Magnesium was low at 1.4 and orders placed for magnesium sulfate 3 g IVPB replacement. Liver profile showing total bili of 4.2, AST of 31, ALT of 15, alkaline phosphatase of 100 Ammonia decreasing down to 76 this morning. Vital signs reviewed. Blood pressure 100/52, heart rate 93, respiratory rate 17, temp 98.1 F, and SpO2 of 96% on room air. CODE STATUS: Full code DVT prophylaxis: SOLIS lina and SCDs secondary to pancytopenia with current platelet count of 39 Anticipated discharge date: Clinical course to determine Anticipated discharge place: Clinical course to determine Patient was seen independently by Nurse Pracitioner. This document was prepared using [employer] dictation software. Please allow for errors in stoker installation mechanic, while rare they do occur. I reviewed the documentation as provided by the YASHIRA above, who is the original author of this note. I agree with the documented assessment and plan, with the following changes: none Objective - Vital Signs Vital signs: Vital Signs Temp 98.1 F 01/07/24 06:30 Pulse 93 01/07/24 06:30 Resp 17 01/07/24 06:30 BP 100/52 01/07/24 06:30 Pulse Ox 96 01/07/24 06:30 FiO2 Intake & Output 01/06/24 01/07/24 01/07/24 18:59 06:59 18:59 Intake Total 1240 Output Total 300 Balance 1240 -300 Intake: Oral 1240 Output: Urine 300 Other: Voiding Method Toilet # Voids 4 1 # Bowel Movements 2 - Labs CBC & Chem 7: 01/07/24 05:42 01/07/24 05:42 Labs: Abnormal Lab Results - Last 24 Hours (Table) 01/06/24 01/06/24 01/06/24 Range/Units 06:33 06:33 11:27 RBC 2.81 L (4.40-5.60) X 10*6/uL Hgb 8.8 L (13.0-17.0) g/dL Hct 27.2 L (39.6-50.0) % RDW 16.8 H (11.5-14.5) % Plt Count 43 L (140-440) X 10*3/uL Lymphocytes # 0.75 L (0.90-5.00) X 10*3/uL Sodium 134 L (135-145) mmol/L Potassium 3.2 L (3.5-5.5) mmol/L Glucose 239 H (70-110) mg/dL POC Glucose (mg/dL) 263 H (70-110) mg/dL Calcium 8.4 L (8.7-10.3) mg/dL Total Bilirubin 4.8 H (0.3-1.2) mg/dL AST 36 H (14-35) U/L Ammonia (<30) umol/L Total Protein 6.1 L (6.2-8.2) g/dL Albumin 2.6 L (3.8-4.9) g/dL Globulin 3.5 H (1.6-3.3) g/dL Albumin/Globulin Ratio 0.74 L (1.60-3.17) Ratio 01/06/24 01/06/24 01/07/24 Range/Units 16:32 20:32 05:38 RBC (4.40-5.60) X 10*6/uL Hgb (13.0-17.0) g/dL Hct (39.6-50.0) % RDW (11.5-14.5) % Plt Count (140-440) X 10*3/uL Lymphocytes # (0.90-5.00) X 10*3/uL Sodium (135-145) mmol/L Potassium (3.5-5.5) mmol/L Glucose (70-110) mg/dL POC Glucose (mg/dL) 265 H 220 H 215 H (70-110) mg/dL Calcium (8.7-10.3) mg/dL Total Bilirubin (0.3-1.2) mg/dL AST (14-35) U/L Ammonia (<30) umol/L Total Protein (6.2-8.2) g/dL Albumin (3.8-4.9) g/dL Globulin (1.6-3.3) g/dL Albumin/Globulin Ratio (1.60-3.17) Ratio 01/07/24 Range/Units 05:42 RBC (4.40-5.60) X 10*6/uL Hgb (13.0-17.0) g/dL Hct (39.6-50.0) % RDW (11.5-14.5) % Plt Count (140-440) X 10*3/uL Lymphocytes # (0.90-5.00) X 10*3/uL Sodium (135-145) mmol/L Potassium (3.5-5.5) mmol/L Glucose (70-110) mg/dL POC Glucose (mg/dL) (70-110) mg/dL Calcium (8.7-10.3) mg/dL Total Bilirubin (0.3-1.2) mg/dL AST (14-35) U/L Ammonia 76 H (<30) umol/L Total Protein (6.2-8.2) g/dL Albumin (3.8-4.9) g/dL Globulin (1.6-3.3) g/dL Albumin/Globulin Ratio (1.60-3.17) Ratio
[2024-01-07 11:12] LABS: Glucose,Whole Blood 270 mg/dL (70-110)
[2024-01-07] MEDS: MAGNESIUM SULFATE-D5W PMX 1 GM in DEXTROSE/WATER 1 100ML.BAG IVPB SCH (15:23)
--- NOTE | 2024-01-07 15:32 | P.GSCN ---
History of Present Illness Consult date: 01/07/24 History of present illness: CHIEF COMPLAINT: Abdominal pain HISTORY OF PRESENT ILLNESS: This is a 48-year-old male who presented to the hospital with complaints of diffuse abdominal pain. Patient has a history of end-stage liver disease, alcoholic liver cirrhosis, esophageal varices. Patient does have a GI specialist that he follows held up formerly [facility] Dr. Garcia. [facility] was closed to transfers. Patient had CT scan and ultrasound of the abdomen completed that did show gallbladder wall thickening. Surgical service was consulted in regards to the gallbladder wall thickening and abdominal pain. Patient does have a history of TIPS procedure about 4 months ago. Patient is currently at [place] prior to coming to the hospital. He reports his last drink was about a week and a half ago. Patient is jaundiced. He does report some nausea after eating. And complains of diffuse abdominal pain. Last bowel movement was yesterday but he does report feeling constipated. Denies any fever chills or sweats. PAST MEDICAL HISTORY: cirrhosis, esophageal varices, end stage liver failure PAST SURGICAL HISTORY: Esophageal varices banding MEDICATIONS: See below ALLERGIES: See below SOCIAL HISTORY: No illicit drug use. REVIEW OF SYSTEMS: CONSTITUTIONAL: Denies fever or chills. HEENT: Denies blurred vision, vision changes, or eye pain. Denies hemoptysis CARDIOVASCULAR: Denies chest pain or pressure. RESPIRATORY: No shortness of breath. GASTROINTESTINAL: See HPI for pertinent findings HEMATOLOGIC: Denies bleeding disorders. GENITOURINARY: Denies any blood in urine or increased urinary frequency. SKIN: Denies pruitis. Denies rash. PHYSICAL EXAM: VITAL SIGNS: Reviewed GENERAL: Well-developed in no acute distress. HEENT: Bilateral scleral icterus. Extraocular movements grossly intact. Moist buccal mucosa. Head is atraumatic, normocephalic. No nasal drainage. ABDOMEN: Soft. Mildly distended. Diffuse tenderness. NEUROLOGIC: Alert and oriented. Cranial nerves II through XII grossly intact. Skin: Jaundiced LABORATORY DATA: WBC 5.07 Hgb 7.8 platelets 39 Sodium 136 potassium 3.7 creatinine 0.7 Lactic acid 2.8 down to 1.6 Magnesium 1.4 Total bilirubin 4.2 AST 31 ALT 15 alk phos 100 Ammonia 76 Lipase 391 Alcohol level less than 10 IMAGING: CT scan abdomen pelvis hepatic cirrhosis with evidence of TIPS procedure. There remains splenomegaly unclear if this is a sequelae of portal hypertension before patient's TIPS procedure recurrent portal hypertension. There is trace abdominal ascites and anasarca. Vika mesentery likely secondary to hepatic cirrhosis. Large amount of stool throughout the colon. Gallbladder wall thickening likely secondary to #1 and portal hypertension Gallbladder ultrasound MPV shunt was seen with flow noted within. Hepatic steatosis. Gallbladder wall thickening. ASSESSMENT: 1. Gallbladder wall thickening noted on CT scan and ultrasound 2. End-stage liver disease 3. History of alcohol induced liver cirrhosis 4. History of TIPS procedure 4 months ago 5. Constipation PLAN: -No surgical intervention planned at this time -Recommend laparoscopic cholecystectomy when medically stable -Patient to continue to follow with his GI physician -Continue lactulose Thank you for this consultation Physician [employer] Stitcher note has been reviewed by physician. Signing provider agrees with the documented findings, assessment, and plan of care. Past Medical History Past Medical History: Chest Pain / Angina Additional Past Medical History / Comment(s): cirrhosis, esophageal varices, end stage liver failure History of Any Multi-Drug Resistant Organisms: None Reported Additional Past Surgical History / Comment(s): bands in esophagus Past Psychological History: No Psychological Hx Reported, Anxiety, Depression Smoking Status: Current every day smoker Past Alcohol Use History: Daily Past Drug Use History: Marijuana Medications and Allergies Home Medications Medication Instructions Recorded Confirmed Type Calcium Phos/D3/Magnesium/Zinc 1 tab PO TID PRN 01/05/24 01/05/24 History [Gzfojyc-Rnl-Abxg-Vitamin D3] Chlorpheniramine Maleate 4 mg PO Q4H PRN 01/05/24 01/05/24 History [Chlor-Trimeton] Folic Acid 1 mg PO DAILY 01/05/24 01/05/24 History Furosemide [Lasix] 20 mg PO DAILY 01/05/24 01/05/24 History Hyoscyamine Sulfate [Levsin] 0.125 mg PO QID PRN 01/05/24 01/05/24 History INSULIN ASPART (NovoLOG) [NovoLOG See Protocol SQ TID-W/MEALS 01/05/24 01/05/24 History (formulary)] Ibuprofen [Motrin Ib] 600 mg PO Q6H PRN 01/05/24 01/05/24 History Insulin Glargine,Hum.rec.anlog 20 units SQ HS 01/05/24 01/05/24 History [Lantus Solostar Pen] Lactulose 20 gm PO TID 01/05/24 01/05/24 History Mag Hydrox/Aluminum Hyd/Simeth 30 ml PO Q4H PRN 01/05/24 01/05/24 History [Mylanta Maximum Strength Liq] Pantoprazole [Protonix] 40 mg PO BID 01/05/24 01/05/24 History Potassium Chloride ER [K-Dur 20] 20 meq PO DAILY PRN 01/05/24 01/05/24 History QUEtiapine [SEROquel] 100 mg PO HS 01/05/24 01/05/24 History Thiamine [Vitamin B-1] 100 mg PO DAILY 01/05/24 01/05/24 History ondansetron HCL [Zofran] 8 mg PO Q6H PRN 01/05/24 01/05/24 History rOPINIRole HCL [Requip] 1 mg PO HS 01/05/24 01/05/24 History Allergies Allergy/AdvReac Type Severity Reaction Status Date / Time Penicillins Allergy Unknown Verified 01/05/24 16:25 Childhood Surgical - Exam Vital Signs Temp Pulse Resp BP Pulse Ox 97.8 F 83 18 111/57 100 01/05/24 15:33 01/05/24 15:33 01/05/24 15:33 01/05/24 15:33 01/05/24 15:33 Results - Labs 01/07/24 05:42 01/07/24 05:42 Abnormal Lab Results - Last 24 Hours (Table) 01/06/24 01/06/24 01/07/24 Range/Units 16:32 20:32 05:38 RBC (4.40-5.60) X 10*6/uL Hgb (13.0-17.0) g/dL Hct (39.6-50.0) % RDW (11.5-14.5) % Plt Count (140-440) X 10*3/uL Glucose (70-110) mg/dL POC Glucose (mg/dL) 265 H 220 H 215 H (70-110) mg/dL Calcium (8.7-10.3) mg/dL Magnesium (1.5-2.4) mg/dL Total Bilirubin (0.3-1.2) mg/dL Ammonia (<30) umol/L Total Protein (6.2-8.2) g/dL Albumin (3.8-4.9) g/dL Albumin/Globulin Ratio (1.60-3.17) Ratio 01/07/24 01/07/24 01/07/24 Range/Units 05:42 05:42 05:42 RBC 2.53 L (4.40-5.60) X 10*6/uL Hgb 7.8 L (13.0-17.0) g/dL Hct 24.2 L (39.6-50.0) % RDW 16.5 H (11.5-14.5) % Plt Count 39 L (140-440) X 10*3/uL Glucose 193 H (70-110) mg/dL POC Glucose (mg/dL) (70-110) mg/dL Calcium 7.9 L (8.7-10.3) mg/dL Magnesium 1.4 L (1.5-2.4) mg/dL Total Bilirubin 4.2 H (0.3-1.2) mg/dL Ammonia 76 H (<30) umol/L Total Protein 5.4 L (6.2-8.2) g/dL Albumin 2.3 L (3.8-4.9) g/dL Albumin/Globulin Ratio 0.74 L (1.60-3.17) Ratio 01/07/24 Range/Units 11:11 RBC (4.40-5.60) X 10*6/uL Hgb (13.0-17.0) g/dL Hct (39.6-50.0) % RDW (11.5-14.5) % Plt Count (140-440) X 10*3/uL Glucose (70-110) mg/dL POC Glucose (mg/dL) 270 H (70-110) mg/dL Calcium (8.7-10.3) mg/dL Magnesium (1.5-2.4) mg/dL Total Bilirubin (0.3-1.2) mg/dL Ammonia (<30) umol/L Total Protein (6.2-8.2) g/dL Albumin (3.8-4.9) g/dL Albumin/Globulin Ratio (1.60-3.17) Ratio Diabetes panel 01/07/24 Range/Units 05:42 Sodium 136 (135-145) mmol/L Potassium 3.7 (3.5-5.5) mmol/L Chloride 105 (96-109) mmol/L Carbon Dioxide 23.8 (21.6-31.8) mmol/L BUN 11.0 (9.0-27.0) mg/dL Creatinine 0.7 (0.6-1.5) mg/dL Glucose 193 H (70-110) mg/dL Calcium 7.9 L (8.7-10.3) mg/dL AST 31 (14-35) U/L ALT 15 (10-49) U/L Alkaline Phosphatase 100 (41-126) U/L Total Protein 5.4 L (6.2-8.2) g/dL Albumin 2.3 L (3.8-4.9) g/dL Calcium panel 01/07/24 Range/Units 05:42 Calcium 7.9 L (8.7-10.3) mg/dL Albumin 2.3 L (3.8-4.9) g/dL Pituitary panel 01/07/24 Range/Units 05:42 Sodium 136 (135-145) mmol/L Potassium 3.7 (3.5-5.5) mmol/L Chloride 105 (96-109) mmol/L Carbon Dioxide 23.8 (21.6-31.8) mmol/L BUN 11.0 (9.0-27.0) mg/dL Creatinine 0.7 (0.6-1.5) mg/dL Glucose 193 H (70-110) mg/dL Calcium 7.9 L (8.7-10.3) mg/dL Adrenal panel 01/07/24 Range/Units 05:42 Sodium 136 (135-145) mmol/L Potassium 3.7 (3.5-5.5) mmol/L Chloride 105 (96-109) mmol/L Carbon Dioxide 23.8 (21.6-31.8) mmol/L BUN 11.0 (9.0-27.0) mg/dL Creatinine 0.7 (0.6-1.5) mg/dL Glucose 193 H (70-110) mg/dL Calcium 7.9 L (8.7-10.3) mg/dL Total Bilirubin 4.2 H (0.3-1.2) mg/dL AST 31 (14-35) U/L ALT 15 (10-49) U/L Alkaline Phosphatase 100 (41-126) U/L Total Protein 5.4 L (6.2-8.2) g/dL Albumin 2.3 L (3.8-4.9) g/dL
[2024-01-07 17:11] LABS: Glucose,Whole Blood 301 mg/dL (70-110)
[2024-01-07 20:20] LABS: Glucose,Whole Blood 272 mg/dL (70-110)
[2024-01-08 05:44] LABS: Glucose,Whole Blood 166 mg/dL (70-110)
[2024-01-08 11:44] LABS: Glucose,Whole Blood 290 mg/dL (70-110)
[2024-01-08 11:53] LABS: Magnesium 1.5 mg/dL (1.5-2.4)
[2024-01-08 12:00] LABS: ALT 14 U/L (10-49); AST 30 U/L (14-35); Albumin 2.2 g/dL (3.8-4.9); Albumin/Globulin Ratio 0.71 Ratio (1.60-3.17); Alkaline Phosphatase 99 U/L (41-126); BUN/Creat Ratio 12.25 Ratio (12.00-20.00); Blood Urea Nitrogen 9.8 mg/dL (9.0-27.0); Calcium 7.9 mg/dL (8.7-10.3); Carbon Dioxide 23.7 mmol/L (21.6-31.8); Chloride 102 mmol/L (96-109); Globulin 3.1 g/dL (1.6-3.3); Glucose 154 mg/dL (70-110); Potassium 3.4 mmol/L (3.5-5.5); Sodium 135 mmol/L (135-145); Total Bilirubin 4.5 mg/dL (0.3-1.2); Total Protein 5.3 g/dL (6.2-8.2)
[2024-01-08 12:10] LABS: HCT 23.8 % (39.6-50.0); HGB 7.6 g/dL (13.0-17.0); Immature Platelet Fraction 2.8 % (1.1-6.1); MCH 31.1 pg (27.0-32.0); MCHC 31.9 g/dL (32.0-37.0); MCV 97.5 FL (80.0-97.0); NRBC Per 100 WBC 0 X 10*3/uL (0.00-0.01); Platelet Count 40 X 10*3/uL (140-440); RBC 2.44 X 10*6/uL (4.40-5.60); RDW 16.4 % (11.5-14.5); WBC 4.33 X 10*3/uL (4.50-10.00)
--- NOTE | 2024-01-08 13:44 | P.PN ---
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 Patient presented to the emergency department on 01/05/2024 from [place] where he was attending rehab over the past 3 days for alcohol withdrawal. Patient reports that it has been approximately 1 week since his last alcoholic beverage. Patient came to the emergency department secondary to reports of confusion and abdominal pain. Patient reports that it has been approximately 1 year since his last paracentesis. He underwent full evaluation in the emergency department. Upon arrival vital signs completed and reviewed. Blood pressure 111/57, heart rate 83, respiratory rate 18, temp 97.8 F, and SpO2 of 100% on room air. EKG completed showing normal sinus rhythm at 78 bpm. Labs completed and reviewed. CBC showing pancytopenia with WBC count of 2.7, hemoglobin 8.6, and platelet count of 45. INR elevated at 1.7. BMP showing hyperglycemia with glucose of 279. Lactic acid elevated at 2.8. Liver profile showing elevated total bili of 4.0 and alkaline phosphatase of 156. Ammonia levels were elevated at 60. Lipase also slightly elevated at 391. Urinalysis positive for protein, glucose, ketones, and bilirubin otherwise negative for infection. Serum alcohol levels were negative at less than 10. CT abdomen and pelvis was completed showing hepatic cirrhosis with evidence of TIPS procedure, continued splenomegaly, trace abdominal ascites and anasarca, tamar mesentery, and gallbladder wall thickening likely secondary to hepatic cirrhosis and portal hypertension. MELD score 19 at time of admission. Patient admitted under our services at this time. Gastroenterology services are not available until 01/10/2024, if patient remains hospitalized will consider consultation to GI services at this time if status changes and patient needs urgent GI consult will arrange for transfer to another facility where patient may be evaluated by precinct police sergeant/production checker. Abdominal ultrasound completed showing MPV with flow noted within confirming working TIPS, reporting no ascites seen on ultrasound exam showing hepatic steatosis and gallbladder wall thickening. Patient continues to report significant diffuse abdominal pain, he has had multiple bowel movements, ultrasound did reveal some gallbladder wall thickening. General surgery consulted for evaluation and further recommendations.General surgery evaluated stating no need for surgical intervention at this time recommend patient follow- up outpatient for further evaluation and possible laparoscopic cholecystectomy if/when he becomes medically stable. Physical exam: Patient alert and oriented at this time. He continues to report diffuse abdominal tenderness. Patient reports last bowel movement was the evening of 01/06/2024. He states he did not have a bowel movement yesterday or as of yet this morning. He denies any nausea or vomiting. Patient was evaluated by general surgery stating no plans for surgical intervention at this time recommending outpatient follow-up for further evaluation and possible laparoscopic cholecystectomy if/when patient becomes medically stable. Lactulose increased to 30 g 4 times daily. Vital signs reviewed and stable. General: Nontoxic, no distress and appears stated age. Derm: Skin warm and dry, jaundiced Head: Atraumatic, normocephalic and symmetric. Eyes: EOMs intact, no lid lag, and scleral icterus present Mouth: no lip lesions, mucus membranes moist Cardiovascular: regular rate and rhythm with normal S1S2, no murmur, positive posterior tibial pulses bilaterally, and cap refill < 2 seconds. Lungs: Respirations even, regular, and unlabored on room air. Lungs CTA bilate rally, no rhonchi, no rales, no wheezing, and no accessory muscle usage. Abdominal: distended abdomen, mild diffuse tenderness upon palpation to upper abdomen. no guarding Ext: ROM intact. No gross muscle atrophy, scant bilateral lower extremity edema edema, no contractures Neuro: Speech clear, face symmetrical and CN II-XII grossly intact with no noted focal neuro deficits Psych: Alert and oriented to person, place, time, and situation. Appropriate and pleasant affect. Assessment and Plan of Care: Acute hepatic encephalopathy secondary to end-stage liver cirrhosis and hyperammonemia End-stage hepatic cirrhosis status post TIPS procedure Hyperbilirubinemia secondary to above Pancytopenia, secondary to above Elevated liver enzymes secondary to above Esophageal varices secondary to end-stage liver cirrhosis Alcohol abuse longstanding history of daily alcohol use Hypokalemia likely secondary multifactorial to daily alcohol use/abuse along with daily diuretic use Lactic acidosis, secondary to cirrhosis. Repeat lactate showing resolution. -Lactulose increased to 30 mg 3 times daily, if no improvement in mentation or ammonia levels we will add rifaximin tomorrow morning to assist in decreasing ammonia levels -Patient to remain on continuous telemetry monitoring with neurochecks every 4 hours and fall precautions in place. -Continue Lasix 20 mg daily -Symptomatic care and pain management. -Provide safe and supportive care and reorientation/redirection as needed -Continue close monitoring with repeat morning CBC, CMP, and ammonia levels. -MELD score 19 at time of admission. -Abdominal ultrasound completed showing MPV with flow noted within confirming working TIPS, reporting no ascites seen on ultrasound exam showing hepatic steatosis and gallbladder wall thickening. Abdominal pain with hyperbilirubinemia Gallbladder wall thickening -Consult placed to general surgery to evaluate as gallbladder wall thickening could likely be secondary to pts cirrhosis and portal hypertension, however with patient's reports of persistent diffuse abdominal pain, needed further evaluation. -General surgery evaluated stating no need for surgical intervention at this time recommend patient follow-up outpatient for further evaluation and possible laparoscopic cholecystectomy if/when he becomes medically stable. Hypomagnesemia Hypokalemia Magnesium 1.5, orders placed for magnesium sulfate 3 g IVPB for replacement. Potassium 3.4. Orders placed for K-Dur 40 mEq x 1 dose. Will continue to monitor with repeat morning BMP and magnesium and place additional orders as indicated based upon these results. Insulin-dependent diabetes mellitus with hyperglycemia Hemoglobin A1c 6.3%. Patient to continue with glycemic protocol and NovoLog sliding scale. Data reviewed: Repeat morning labs reviewed. CBC showing pancytopenia with WBC count of 4.33, hemoglobin of 7.6, and platelet count of 40. BMP revealing hypokalemia with p otassium of 3.4. Magnesium 1.5. Liver profile showing continued elevated total bili of 4.5 otherwise normal findings. Ammonia 80. Vital signs reviewed. Blood pressure 103/64, heart rate 88, respiratory rate 17, temp 98.4 F, SpO2 95% on room air. CODE STATUS: Full code DVT prophylaxis: SOLIS hose and SCDs secondary to pancytopenia with current platelet count of 39 Anticipated discharge date: Clinical course to determine Anticipated discharge place: Clinical course to determine Patient was seen independently by Nurse Pracitioner. This document was prepared using [employer] dictation software. Please allow for errors in fashion styling intern, while rare they do occur. I reviewed the documentation as provided by the YASHIRA above, who is the original author of this note. I agree with the documented assessment and plan, with the following changes: none Objective - Vital Signs Vital signs: Vital Signs Temp 98.4 F 01/08/24 06:50 Pulse 88 01/08/24 06:50 Resp 17 01/08/24 06:50 BP 103/64 01/08/24 06:50 Pulse Ox 95 01/08/24 06:50 FiO2 Intake & Output 01/07/24 01/08/24 01/08/24 18:59 06:59 18:59 Intake Total 430 Balance 430 Intake: Oral 430 Other: Voiding Method Toilet Toilet # Voids 2 1 # Bowel Movements 1 - Labs CBC & Chem 7: 01/10/24 05:31 01/10/24 05:31 Labs: Abnormal Lab Results - Last 24 Hours (Table) 01/07/24 01/07/24 01/07/24 Range/Units 05:42 05:42 11:11 RBC 2.53 L (4.40-5.60) X 10*6/uL Hgb 7.8 L (13.0-17.0) g/dL Hct 24.2 L (39.6-50.0) % RDW 16.5 H (11.5-14.5) % Plt Count 39 L (140-440) X 10*3/uL Glucose 193 H (70-110) mg/dL POC Glucose (mg/dL) 270 H (70-110) mg/dL Calcium 7.9 L (8.7-10.3) mg/dL Magnesium 1.4 L (1.5-2.4) mg/dL Total Bilirubin 4.2 H (0.3-1.2) mg/dL Ammonia (<30) umol/L Total Protein 5.4 L (6.2-8.2) g/dL Albumin 2.3 L (3.8-4.9) g/dL Albumin/Globulin Ratio 0.74 L (1.60-3.17) Ratio 01/07/24 01/07/24 01/08/24 Range/Units 17:10 20:17 05:42 RBC (4.40-5.60) X 10*6/uL Hgb (13.0-17.0) g/dL Hct (39.6-50.0) % RDW (11.5-14.5) % Plt Count (140-440) X 10*3/uL Glucose (70-110) mg/dL POC Glucose (mg/dL) 301 H 272 H 166 H (70-110) mg/dL Calcium (8.7-10.3) mg/dL Magnesium (1.5-2.4) mg/dL Total Bilirubin (0.3-1.2) mg/dL Ammonia (<30) umol/L Total Protein (6.2-8.2) g/dL Albumin (3.8-4.9) g/dL Albumin/Globulin Ratio (1.60-3.17) Ratio 01/08/24 Range/Units 06:16 RBC (4.40-5.60) X 10*6/uL Hgb (13.0-17.0) g/dL Hct (39.6-50.0) % RDW (11.5-14.5) % Plt Count (140-440) X 10*3/uL Glucose (70-110) mg/dL POC Glucose (mg/dL) (70-110) mg/dL Calcium (8.7-10.3) mg/dL Magnesium (1.5-2.4) mg/dL Total Bilirubin (0.3-1.2) mg/dL Ammonia 80 H (<30) umol/L Total Protein (6.2-8.2) g/dL Albumin (3.8-4.9) g/dL Albumin/Globulin Ratio (1.60-3.17) Ratio
[2024-01-08 16:04] LABS: Glucose,Whole Blood 296 mg/dL (70-110)
[2024-01-08] MEDS: LACTULOSE 20 GM/30 ML CUP PO SCH (16:06)
[2024-01-08] MEDS: MAGNESIUM SULFATE-D5W PMX 1 GM in DEXTROSE/WATER 1 100ML.BAG IVPB SCH (18:26)
[2024-01-08] MEDS: POTASSIUM CHLORIDE ER 20 MEQ TAB.ER PO STA (18:26)
[2024-01-08 19:39] LABS: Glucose,Whole Blood 310 mg/dL (70-110)
[2024-01-09] MEDS: INSULIN ASPART (NovoLOG) 100 UNIT/ML VIAL SQ ONE (00:13)
[2024-01-09] MEDS: MAGNESIUM SULFATE-D5W PMX 1 GM in DEXTROSE/WATER 1 100ML.BAG IVPB SCH (03:25)
[2024-01-09 06:15] LABS: Glucose,Whole Blood 197 mg/dL (70-110)
[2024-01-09 09:56] LABS: Magnesium 1.8 mg/dL (1.5-2.4)
[2024-01-09 10:06] LABS: ALT 14 U/L (10-49); AST 25 U/L (14-35); Albumin 2.3 g/dL (3.8-4.9); Albumin/Globulin Ratio 0.72 Ratio (1.60-3.17); Alkaline Phosphatase 103 U/L (41-126); BUN/Creat Ratio 12.75 Ratio (12.00-20.00); Blood Urea Nitrogen 10.2 mg/dL (9.0-27.0); Calcium 7.5 mg/dL (8.7-10.3); Chloride 104 mmol/L (96-109); Globulin 3.2 g/dL (1.6-3.3); Glucose 186 mg/dL (70-110); Potassium 3.4 mmol/L (3.5-5.5); Sodium 135 mmol/L (135-145); Total Bilirubin 4.3 mg/dL (0.3-1.2); Total Protein 5.5 g/dL (6.2-8.2)
[2024-01-09 10:15] LABS: HCT 24.4 % (39.6-50.0); HGB 7.8 g/dL (13.0-17.0); Immature Platelet Fraction 2.2 % (1.1-6.1); MCV 96.8 FL (80.0-97.0); Mean Platelet Volume 9.5 FL (9.5-12.2); NRBC Per 100 WBC 0.02 X 10*3/uL (0.00-0.01); Platelet Count 52 X 10*3/uL (140-440); RBC 2.52 X 10*6/uL (4.40-5.60); RDW 16.5 % (11.5-14.5); WBC 3.41 X 10*3/uL (4.50-10.00)
--- NOTE | 2024-01-09 10:42 | XR ---
KUB. HISTORY: Abdominal pain. COMPARISON: None. TECHNIQUE: 2 supine portable views of the abdomen were obtained. FINDINGS: The lung bases are clear. There is no free intraperitoneal air beneath the diaphragm. The bowel gas pattern is nonspecific and there is no evidence of obstruction. There is a large amount air and stool within the colon. No suspicious abdominal or pelvic calcifications are seen. There is a stent within the liver indicati ng prior TIPS procedure. The osseous structures are intact. IMPRESSION: Nonspecific abdomen without evidence of free air or obstruction. Large amount air and stool within th e colon.
[2024-01-09 11:25] LABS: Glucose,Whole Blood 242 mg/dL (70-110)
[2024-01-09] MEDS: bisacodyL 10 MG SUPP RECTAL STA (11:31)
--- NOTE | 2024-01-09 15:09 | P.PN ---
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 Patient presented to the emergency department on 01/05/2024 from [facility] where he was attending rehab over the past 3 days for alcohol withdrawal. Patient reports that it has been approximately 1 week since his last alcoholic beverage. Patient came to the emergency department secondary to reports of confusion and abdominal pain. Patient reports that it has been approximately 1 year since his last paracentesis. He underwent full evaluation in the emergency department. Upon arrival vital signs completed and reviewed. Blood pressure 111/57, heart rate 83, respiratory rate 18, temp 97.8 F, and SpO2 of 100% on room air. EKG completed showing normal sinus rhythm at 78 bpm. Labs completed and reviewed. CBC showing pancytopenia with WBC count of 2.7, hemoglobin 8.6, and platelet count of 45. INR elevated at 1.7. BMP showing hyperglycemia with glucose of 279. Lactic acid elevated at 2.8. Liver profile showing elevated total bili of 4.0 and alkaline phosphatase of 156. Ammonia levels were elevated at 60. Lipase also slightly elevated at 391. Urinalysis positive for protein, glucose, ketones, and bilirubin otherwise negative for infection. Serum alcohol levels were negative at less than 10. CT abdomen and pelvis was completed showing hepatic cirrhosis with evidence of TIPS procedure, continued splenomegaly, trace abdominal ascites and anasarca, tamar mesentery, and gallbladder wall thickening likely secondary to hepatic cirrhosis and portal hypertension. MELD score 19 at time of admission. Patient admitted under our services at this time. Gastroenterology services are not available until 01/10/2024, if patient remains hospitalized will consider consultation to GI services at this time if status changes and patient needs urgent GI consult will arrange for transfer to another facility where patient may be evaluated by photograph tinter/sales administration specialist. Abdominal ultrasound completed showing MPV with flow noted within confirming working TIPS, reporting no ascites seen on ultrasound exam showing hepatic steatosis and gallbladder wall thickening. Patient continues to report significant diffuse abdominal pain, he has had multiple bowel movements, ultrasound did reveal some gallbladder wall thickening. General surgery consulted for evaluation and further recommendations. Physical exam: Patient seen and fully evaluated at bedside this morning. Patient reports eating full breakfast this morning and denies having any nausea or vomiting. He states continued abdominal bloating and mild discomfort. No significant pain reported upon palpation. Patient has not had a bowel movement since morning of 01/07/2024. Lactulose was increased to 30 g 4 times daily yesterday without successful bowel movement. Order placed for KUB which was negative for free air or any signs of obstruction showing a large amount of stool within the colon. Order placed for Dulcolax suppository. Will continue to monitor. If no bowel movement after administration of suppository, order will be placed for enema. Vital signs reviewed and stable. General: Nontoxic, no distress and appears stated age. Derm: Skin warm and dry, jaundiced Head: Atraumatic, normocephalic and symmetric. Eyes: EOMs intact, no lid lag, and scleral icterus present Mouth: no lip lesions, mucus membranes moist Cardiovascular: regular rate and rhythm with normal S1S2, no murmur, positive posterior tibial pulses bilaterally, and cap refill < 2 seconds. Lungs: Respirations even, regular, and unlabored on room air. Lungs CTA bilaterally, no rhonchi, no rales, no wheezing, and no accessory muscle usage. Abdominal: Soft distended abdomen, mild diffuse tenderness upon palpation to upper abdomen. no guarding Ext: ROM intact. No gross muscle atrophy, 1+ bilateral lower extremity pitting edema. No contractures Neuro: Speech clear, face symmetrical and CN II-XII grossly intact with no noted focal neuro deficits Psych: Alert and oriented to person, place, time, and situation. Appropriate and pleasant affect. Assessment and Plan of Care: Acute hepatic encephalopathy secondary to end-stage liver cirrhosis and hyperammonemia Constipation with abdominal distention and reports of discomfort End-stage hepatic cirrhosis status post TIPS procedure Hyperbilirubinemia secondary to above Pancytopenia, secondary to above Elevated liver enzymes secondary to above Esophageal varices secondary to end-stage liver cirrhosis Alcohol abuse longstanding history of daily alcohol use Hypokalemia likely secondary multifactorial to daily alcohol use/abuse along with daily diuretic use Lactic acidosis, secondary to cirrhosis. Repeat lactate showing resolution. -Patient has not had a bowel movement since morning of 01/07/2024. Lactulose was increased to 30 g 4 times daily on 01/08/2024 without successful bowel movement. -KUB completed and radiology report negative for free air or any signs of obstruction showing a large amount of stool within the colon. -Order placed for Dulcolax suppository. Will continue to monitor. If no bowel movement after administration of suppository, order will be placed for enema. -Patient to remain on continuous telemetry monitoring with neurochecks every 4 hours and fall precautions in place. -Continue lactulose 30 g 4 times daily and Lasix 20 mg daily. Abdominal pain with hyperbilirubinemia -It is unclear as to why pt is having diffuse abdominal pain as it could be multifactorial resulting from his cirrhosis, however CT and ultrasound showing gallbladder wall thickening. -Consult placed to general surgery to evaluate, as gallbladder wall thickening could likely be secondary to his cirrhosis and portal hypertension, however with patient's reports of persistent diffuse abdominal pain, need further evaluation.. Hypomagnesemia, resolved Insulin-dependent diabetes mellitus with hyperglycemia Hemoglobin A1c 6.3%. Patient to continue with glycemic protocol and NovoLog sliding scale. Data reviewed: Repeat morning labs reviewed. CBC showing pancytopenia with WBC count of 3.41, hemoglobin 7.8, and platelet count of 52. BMP revealing mild hypokalemia with potassium of 3.4, orders were placed for replacement. Liver profile showing persistent but stable elevation of total bili at 4.3. Ammonia levels improving to 74 this morning. Vital signs reviewed. Blood pressure 106/56, heart rate 94, respiratory rate 17, temp 98.6 F, SpO2 is 97% on room air. CODE STATUS: Full code DVT prophylaxis: SOLIS hose and SCDs secondary to pancytopenia with current platelet count of 39 Anticipated discharge date: Clinical course to determine Anticipated discharge place: Clinical course to determine Patient was seen independently by Nurse Pracitioner. This document was prepared using [employer] dictation software. Please allow for errors in blender / cook, while rare they do occur. Christian Guerrero NP rendered care for this patient independently, reviewed the findings and plan as documented in the note above. I did not physically speak with or examine the patient on this date. Objective - Vital Signs Vital signs: Vital Signs Temp 98.5 F 01/09/24 13:20 Pulse 115 H 01/09/24 13:20 Resp 18 01/09/24 13:20 BP 118/72 01/09/24 13:20 Pulse Ox 98 01/09/24 13:20 FiO2 Intake & Output 01/08/24 01/09/24 01/09/24 18:59 06:59 18:59 Other: Voiding Method Toilet Toilet Toilet # Voids 2 1 # Bowel Movements 1 - Labs CBC & Chem 7: 01/09/24 07:05 01/09/24 07:05 Labs: Abnormal Lab Results - Last 24 Hours (Table) 01/08/24 01/08/24 01/09/24 Range/Units 16:03 19:38 06:13 WBC (4.50-10.00) X 10*3/uL RBC (4.40-5.60) X 10*6/uL Hgb (13.0-17.0) g/dL Hct (39.6-50.0) % RDW (11.5-14.5) % Plt Count (140-440) X 10*3/uL NRBC/100 WBC Diff (0.00-0.01) X 10*3/uL Potassium (3.5-5.5) mmol/L Glucose (70-110) mg/dL POC Glucose (mg/dL) 296 H 310 H 197 H (70-110) mg/dL Calcium (8.7-10.3) mg/dL Total Bilirubin (0.3-1.2) mg/dL Ammonia (<30) umol/L Total Protein (6.2-8.2) g/dL Albumin (3.8-4.9) g/dL Albumin/Globulin Ratio (1.60-3.17) Ratio 01/09/24 01/09/24 01/09/24 Range/Units 07:05 07:05 07:05 WBC 3.41 L (4.50-10.00) X 10*3/uL RBC 2.52 L (4.40-5.60) X 10*6/uL Hgb 7.8 L (13.0-17.0) g/dL Hct 24.4 L (39.6-50.0) % RDW 16.5 H (11.5-14.5) % Plt Count 52 L (140-440) X 10*3/uL NRBC/100 WBC Diff 0.02 H (0.00-0.01) X 10*3/uL Potassium 3.4 L (3.5-5.5) mmol/L Glucose 186 H (70-110) mg/dL POC Glucose (mg/dL) (70-110) mg/dL Calcium 7.5 L (8.7-10.3) mg/dL Total Bilirubin 4.3 H (0.3-1.2) mg/dL Ammonia 74 H (<30) umol/L Total Protein 5.5 L (6.2-8.2) g/dL Albumin 2.3 L (3.8-4.9) g/dL Albumin/Globulin Ratio 0.72 L (1.60-3.17) Ratio 01/09/24 Range/Units 11:24 WBC (4.50-10.00) X 10*3/uL RBC (4.40-5.60) X 10*6/uL Hgb (13.0-17.0) g/dL Hct (39.6-50.0) % RDW (11.5-14.5) % Plt Count (140-440) X 10*3/uL NRBC/100 WBC Diff (0.00-0.01) X 10*3/uL Potassium (3.5-5.5) mmol/L Glucose (70-110) mg/dL POC Glucose (mg/dL) 242 H (70-110) mg/dL Calcium (8.7-10.3) mg/dL Total Bilirubin (0.3-1.2) mg/dL Ammonia (<30) umol/L Total Protein (6.2-8.2) g/dL Albumin (3.8-4.9) g/dL Albumin/Globulin Ratio (1.60-3.17) Ratio
[2024-01-09 18:22] LABS: Glucose,Whole Blood 331 mg/dL (70-110)
[2024-01-09] MEDS: POTASSIUM CHLORIDE ER 20 MEQ TAB.ER PO STA (18:41)
[2024-01-09 21:03] LABS: Glucose,Whole Blood 159 mg/dL (70-110)
[2024-01-10] MEDS: LACTATED RINGERS 1,000 ML IV SCH (06:05)
[2024-01-10 06:53] LABS: Glucose,Whole Blood 167 mg/dL (70-110)
[2024-01-10 08:52] LABS: Magnesium 1.4 mg/dL (1.5-2.4)
[2024-01-10 08:54] LABS: ALT 15 U/L (10-49); AST 26 U/L (14-35); Albumin 2.3 g/dL (3.8-4.9); Alkaline Phosphatase 103 U/L (41-126); BUN/Creat Ratio 15.86 Ratio (12.00-20.00); Blood Urea Nitrogen 11.1 mg/dL (9.0-27.0); Calcium 7.8 mg/dL (8.7-10.3); Carbon Dioxide 23.2 mmol/L (21.6-31.8); Chloride 104 mmol/L (96-109); Globulin 3.3 g/dL (1.6-3.3); Glucose 165 mg/dL (70-110); Potassium 3.7 mmol/L (3.5-5.5); Sodium 136 mmol/L (135-145); Total Protein 5.6 g/dL (6.2-8.2)
[2024-01-10 08:57] LABS: HCT 23.9 % (39.6-50.0); HGB 7.6 g/dL (13.0-17.0); Immature Platelet Fraction 1.5 % (1.1-6.1); MCH 31.4 pg (27.0-32.0); MCHC 31.8 g/dL (32.0-37.0); MCV 98.8 FL (80.0-97.0); Mean Platelet Volume 9.3 FL (9.5-12.2); NRBC Per 100 WBC 0 X 10*3/uL (0.00-0.01); Platelet Count 55 X 10*3/uL (140-440); RBC 2.42 X 10*6/uL (4.40-5.60); RDW 16.7 % (11.5-14.5); WBC 3.32 X 10*3/uL (4.50-10.00)
[2024-01-10] MEDS: HYDROcodone/APAP 5-325MG 1 EACH TAB PO PRN (11:11)
[2024-01-10] MEDS: MAGNESIUM SULFATE-D5W PMX 1 GM in DEXTROSE/WATER 1 100ML.BAG IVPB SCH (11:12)
[2024-01-10 12:00] LABS: Glucose,Whole Blood 270 mg/dL (70-110)
--- NOTE | 2024-01-10 13:08 | P.DS ---
Providers Date of admission: 01/05/24 19:51 Expected date of discharge: 01/10/24 Attending physician: Юлия Saini MD Consults: 01/07/24 13:16 Consult Physician Routine Consulting Provider: Cecil Delgado Consult Reason/Comments: diffuse abdominal pain, gallbladder wall thickening Do you want consulting provider notified?: Yes Primary care physician: Physician Nonstaff Hospital Course: Discharge Diagnosis: Acute hepatic encephalopathy secondary to end-stage liver cirrhosis and hyperammonemia. Resolved. Patient discharged home on increased dose of lactulose 30 g 3 times daily. Patient discharged back to [facility]. Constipation with abdominal distention and reports of discomfort, resolved. 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 Hyperbilirubinemia secondary to above. Pancytopenia, secondary to above. Elevated liver enzymes secondary to above. Esophageal varices secondary to end-stage liver cirrhosis Alcohol abuse longstanding history of daily alcohol use. Hypokalemia likely secondary multifactorial to daily alcohol use/abuse along with daily diuretic use. Resolved. Hypomagnesemia, replaced and patient did with magnesium oxide 400 mg daily. Lactic acidosis, secondary to cirrhosis. Repeat lactate showing resolution. Abdominal pain with hyperbilirubinemia. Patient was evaluated by general surgery, as gallbladder wall thickening could likely be secondary to his cirrhosis and portal hypertension, however with patient's reports of persistent diffuse abdominal pain, needed further evaluation. General surgery recommending no surgical interventions at this time recommend patient follow-up outpatient with his aircraft motor mechanic.. Hypomagnesemia, resolved Insulin-dependent diabetes mellitus with hyperglycemia. Hemoglobin A1c 6.3%. Patient to continue with glycemic protocol and he is home NovoLog sliding scale. Hospital Course: Patient is a pleasant 48-year-old male with a past medical history of alcohol abuse, polysubstance abuse, end-stage liver cirrhosis status post TIPS proc edure, and esophageal varices. Patient presented to the emergency department on 01/05/2024 from [facility] where he was attending rehab over the past 3 days for alcohol withdrawal. Patient reports that it has been approximately 1 week since his last alcoholic beverage. Patient came to the emergency department secondary to reports of confusion and abdominal pain. Patient reports that it has been approximately 1 year since his last paracentesis. He underwent full evaluation in the emergency department. Upon arrival vital signs completed and reviewed. Blood pressure 111/57, heart rate 83, respiratory rate 18, temp 97.8 F, and SpO2 of 100% on room air. EKG completed showing normal sinus rhythm at 78 bpm. Labs completed and reviewed. CBC showing pancytopenia with WBC count of 2.7, he moglobin 8.6, and platelet count of 45. INR elevated at 1.7. BMP showing hyperglycemia with glucose of 279. Lactic acid elevated at 2.8. Liver profile showing elevated total bili of 4.0 and alkaline phosphatase of 156. Ammonia levels were elevated at 60. Lipase also slightly elevated at 391. Urinalysis positive for protein, glucose, ketones, and bilirubin otherwise negative for infection. Serum alcohol levels were negative at less than 10. CT abdomen and pelvis was completed showing hepatic cirrhosis with evidence of TIPS procedure, continued splenomegaly, trace abdominal ascites and anasarca, tamar mesentery, and gallbladder wall thickening likely secondary to hepatic cirrhosis and portal hypertension. MELD score 19 at time of admission. Patient admitted under our services at this time. Gastroenterology services are not available until 01/10/2024, if patient remains hospitalized will consider consultation to GI services at this time if status changes and patient needs urgent GI consult will arrange for transfer to another facility where patient may be evaluated by aircraft motor mechanic/machine printer hose. Abdominal ultrasound completed showing MPV with flow noted within confirming working TIPS, reporting no ascites seen on ultrasound exam showing hepatic steatosis and gallbladder wall thickening. Patient continues to report significant diffuse abdominal pain, he has had mult iple bowel movements, ultrasound did reveal some gallbladder wall thickening. General surgery consulted for evaluation and further recommendations. General surgery recommending no surgical interventions at this time recommend patient follow-up outpatient with his aircraft motor mechanic.. Patient's acute hepatic encephalopathy resolved. Ammonia levels improved. Patient stable for discharge back to [facility] at this time. Patient discharged home on increased dose of lactulose 30 g 3 times daily. Patient instructed that he will need to follow-up with his aircraft motor mechanic/machine printer hose upon discharge from [facility]. Physical exam: Vital signs reviewed and stable. General: Nontoxic, no distress and appears stated age. Derm: Skin warm and dry, jaundiced Head: Atraumatic, normocephalic and symmetric. Eyes: EOMs intact, no lid lag, and scleral icterus present Mouth: no lip lesions, mucus membranes moist Cardiovascular: regular rate and rhythm with normal S1S2, no murmur, positive posterior tibial pulses bilaterally, and cap refill < 2 seconds. Lungs: Respirations even, regular, and unlabored on room air. Lungs CTA bilaterally, no rhonchi, no rales, no wheezing, and no accessory muscle usage. Abdominal: Soft distended abdomen, mild diffuse tenderness upon palpation to upper abdomen. no guarding Ext: ROM intact. No gross muscle atrophy, 1+ bilateral lower extremity pitting edema. No contractures Neuro: Speech clear, face symmetrical and CN II-XII grossly intact with no noted focal neuro deficits Psych: Alert and oriented to person, place, time, and situation. Appropriate and pleasant affect. A total of 38 minutes of time were spent preparing this complex discharge summary. Pt was discharged on 01/10/2024 at 1:06 PM. Patient was seen independently by Nurse Practitioner. This document was prepared using [employer] dictation software. Please allow for errors in steeping press operator while rare they do occur. I reviewed the documentation as provided by the YASHIRA above, who is the original author of this note. I agree with the documented assessment and plan, with the following changes: none Patient Condition at Discharge: Stable Plan - Discharge Summary New Discharge Prescriptions: New Lactulose [Cephulac] 30 gm PO TID 30 Days #2700 gm Magnesium Oxide [Magox 400] 400 mg PO DAILY 30 Days #30 tablet Continue ondansetron HCL [Zofran] 8 mg PO Q6H PRN PRN Reason: Nausea Thiamine [Vitamin B-1] 100 mg PO DAILY Chlorpheniramine Maleate [Chlor-Trimeton] 4 mg PO Q4H PRN PRN Reason: WITHDRAWL SYMPTOMS rOPINIRole HCL [Requip] 1 mg PO HS Pantoprazole [Protonix] 40 mg PO BID Insulin Glargine,Hum.rec.anlog [Lantus Solostar Pen] 20 units SQ HS INSULIN ASPART (NovoLOG) [NovoLOG (formulary)] See Protocol SQ TID-W/MEALS Furosemide [Lasix] 20 mg PO DAILY Mag Hydrox/Aluminum Hyd/Simeth [Mylanta Maximum Strength Liq] 30 ml PO Q4H PRN PRN Reason: Gi Upset Hyoscyamine Sulfate [Levsin] 0.125 mg PO QID PRN PRN Reason: CRAMPS Calcium Phos/D3/Magnesium/Zinc [Psrfoow-Fci-Zyre-Vitamin D3] 1 tab PO TID PRN PRN Reason: WITHDRAWL SYMPTOMS QUEtiapine [SEROquel] 100 mg PO HS Potassium Chloride ER [K-Dur 20] 20 meq PO DAILY PRN PRN Reason: K <3.5 Lactulose 20 gm PO TID Folic Acid 1 mg PO DAILY Discontinued Ibuprofen [Motrin Ib] 600 mg PO Q6H PRN PRN Reason: Pain Or Fever > 100.5 Discharge Medication List Calcium Phos/D3/Magnesium/Zinc [Posubme-Wsb-Mcra-Vitamin D3] 1 tab PO TID PRN 01/05/24 [History] Chlorpheniramine Maleate [Chlor-Trimeton] 4 mg PO Q4H PRN 01/05/24 [History] Folic Acid 1 mg PO DAILY 01/05/24 [History] Furosemide [Lasix] 20 mg PO DAILY 01/05/24 [History] Hyoscyamine Sulfate [Levsin] 0.125 mg PO QID PRN 01/05/24 [History] INSULIN ASPART (NovoLOG) [NovoLOG (formulary)] See Protocol SQ TID-W/MEALS 01/05/24 [History] Insulin Glargine,Hum.rec.anlog [Lantus Solostar Pen] 20 units SQ HS 01/05/24 [History] Lactulose 20 gm PO TID 01/05/24 [History] Mag Hydrox/Aluminum Hyd/Simeth [Mylanta Maximum Strength Liq] 30 ml PO Q4H PRN 01/05/24 [History] Pantoprazole [Protonix] 40 mg PO BID 01/05/24 [History] Potassium Chloride ER [K-Dur 20] 20 meq PO DAILY PRN 01/05/24 [History] QUEtiapine [SEROquel] 100 mg PO HS 01/05/24 [History] Thiamine [Vitamin B-1] 100 mg PO DAILY 01/05/24 [History] ondansetron HCL [Zofran] 8 mg PO Q6H PRN 01/05/24 [History] rOPINIRole HCL [Requip] 1 mg PO HS 01/05/24 [History] Lactulose [Cephulac] 30 gm PO TID 30 Days #2700 gm 01/10/24 [Rx] Magnesium Oxide [Magox 400] 400 mg PO DAILY 30 Days #30 tablet 01/10/24 [Rx] Follow up Appointment(s)/Referral(s): None,Stated [REFERRING] - 1-2 days (Please call a primary care doctor for follow-up appointment.) Activity/Diet/Wound Care/Special Instructions: Call [facility] for transport at discharge: [phone] It is important for you to follow-up outpatient with your aircraft motor mechanic/machine printer hose after you are discharged from [facility]. Discharge Disposition: HOME SELF-CARE
[2024-01-10 15:04] VITALS: BP 111/61; PULSE 82; RESP 19; TEMP 98.1
--- NOTE | 2024-01-10 15:20 | P.PN ---
Subjective Progress Note Date: 01/10/24 CHIEF COMPLAINT: Abdominal pain HISTORY OF PRESENT ILLNESS: Patient has had bowel movements. He does report decreased appetite. He does report some discomfort across the lower abdomen. KUB x-ray nonspecific abdomen without evidence of free air or obstruction. A large amount of air and stool within the colon. Afebrile. WBC 3.32 Hgb 7.6 platelets 55 total bilirubin 4.0 PHYSICAL EXAM: VITAL SIGNS: Reviewed. GENERAL: Jaundiced. no acute distress. HEENT: sclera icterus present. ABDOMEN: Soft. Mildly distended. mild Lower abdominal tenderness NEUROLOGIC: Alert and oriented. Cranial nerves II through XII grossly intact. ASSESSMENT: 1. Gallbladder wall thickening noted on CT scan and ultrasound 2. End-stage liver disease 3. History of alcohol induced liver cirrhosis 4. History of TIPS procedure 4 months ago 5. Constipation PLAN: -Patient can be discharge from surgical standpoint -No surgical intervention planned at this time -Recommend laparoscopic cholecystectomy when medically stable -Patient to continue to follow with his GI physician -Continue laxatives Physician Fire And Explosion Investigator note has been reviewed by physician. Signing provider agrees with the documented findings, assessment, and plan of care. Objective - Vital Signs Vital signs: Vital Signs Temp 98.1 F 01/10/24 13:40 Pulse 82 01/10/24 13:40 Resp 19 01/10/24 13:40 BP 111/61 01/10/24 13:40 Pulse Ox 98 01/10/24 13:40 FiO2 Intake & Output 01/09/24 01/10/24 01/10/24 18:59 06:59 18:59 Output Total 1100 Balance -1100 Output: Urine 1100 Other: Voiding Method Toilet # Voids 2 # Bowel Movements 1 - Labs CBC & Chem 7: 01/10/24 05:31 01/10/24 05:31 Labs: Abnormal Lab Results - Last 24 Hours (Table) 01/09/24 01/09/24 01/10/24 Range/Units 18:21 21:02 05:31 WBC 3.32 L (4.50-10.00) X 10*3/uL RBC 2.42 L (4.40-5.60) X 10*6/uL Hgb 7.6 L (13.0-17.0) g/dL Hct 23.9 L (39.6-50.0) % MCV 98.8 H (80.0-97.0) FL MCHC 31.8 L (32.0-37.0) g/dL RDW 16.7 H (11.5-14.5) % Plt Count 55 L (140-440) X 10*3/uL MPV 9.3 L (9.5-12.2) FL Glucose (70-110) mg/dL POC Glucose (mg/dL) 331 H 159 H (70-110) mg/dL Calcium (8.7-10.3) mg/dL Magnesium (1.5-2.4) mg/dL Total Bilirubin (0.3-1.2) mg/dL Total Protein (6.2-8.2) g/dL Albumin (3.8-4.9) g/dL Albumin/Globulin Ratio (1.60-3.17) Ratio 01/10/24 01/10/24 01/10/24 Range/Units 05:31 06:48 11:58 WBC (4.50-10.00) X 10*3/uL RBC (4.40-5.60) X 10*6/uL Hgb (13.0-17.0) g/dL Hct (39.6-50.0) % MCV (80.0-97.0) FL MCHC (32.0-37.0) g/dL RDW (11.5-14.5) % Plt Count (140-440) X 10*3/uL MPV (9.5-12.2) FL Glucose 165 H (70-110) mg/dL POC Glucose (mg/dL) 167 H 270 H (70-110) mg/dL Calcium 7.8 L (8.7-10.3) mg/dL Magnesium 1.4 L (1.5-2.4) mg/dL Total Bilirubin 4.0 H (0.3-1.2) mg/dL Total Protein 5.6 L (6.2-8.2) g/dL Albumin 2.3 L (3.8-4.9) g/dL Albumin/Globulin Ratio 0.70 L (1.60-3.17) Ratio
== END 2024-01-10 17:25 | disposition home or self-care (01) | DRG 433 ==
LOC: EC 15:15 → 4SSUR 19:51
PROVIDERS: ADMIT Internal Medicine; ATTEND Internal Medicine
DX: K70.30 Alcoholic cirrhosis of liver without ascites (principal); D61.818 Other pancytopenia; E87.20 Acidosis, unspecified; K76.6 Portal hypertension; K86.1 Other chronic pancreatitis; E11.65 Type 2 diabetes mellitus with hyperglycemia; K76.82 Hepatic encephalopathy; F10.20 Alcohol dependence, uncomplicated; F17.210 Nicotine dependence, cigarettes, uncomplicated; I10 Essential (primary) hypertension; K72.10 Chronic hepatic failure without coma; R79.1 Abnormal coagulation profile; E87.6 Hypokalemia; E83.42 Hypomagnesemia; G89.29 Other chronic pain; Z79.4 Long term (current) use of insulin; Z79.899 Other long term (current) drug therapy; Z88.0 Allergy status to penicillin; R16.1 Splenomegaly, not elsewhere classified
CPT/HCPCS: 36415; 74018; 74177; 76705; 80053; 80320; 81003; 82140; 82150; 82248; 83036; 83605; 83690; 83735; 85025; 85027; 85610; 85730; 86850; 86900; 86901; 93005; 93976; 96361; 96374; 96375; 96376; 99291